=== PATIENT | female | born 1935 | race Caucasian/White ===

== ENCOUNTER → 2017-11-05 | Emergency (ER) | payer OTHER ==
[~2017-11-05] MED LIST: AMIODARONE HCL 150 MG/3 ML INJ IV ONE; AMIODARONE Inj 900 MG/18 mL (=50 MG/ML) VIAL IV ONE; FENTANYL CITR 100 MCG/2 ML ONE; KCL 20 MEQ/100 mL IVPB 20 MEQ/100 ML BAG IV ONE; MIDAZOLAM HCL 2 MG/2 ML INJ ONE; NA CHLORIDE 0.9% 1,000 ML ONE; NA CHLORIDE 0.9% 500 ML ONE; NS KCL 20MEQ 1,000 ML IV ONE; ONDANSETRON 4 MG/2 ML VIAL ONE; PANTOPRAZOLE 40 MG INJ ONE; PANTOPRAZOLE INJ 80 MG in NA CHLORIDE 0.9% 250 ML IV ONE
--- NOTE | 2017-11-05 10:45 | RAD REPORT ---
[facility]2017 10:24 am CLINICAL HISTORY: Cardioversion COMPARISON: 2013 FINDINGS: The lungs appear clear of acute infiltrate. The heart remains enlarged. Dilated central p ulmonary arteries probably indicate pulmonary arterial hypertension. Calcified lung granulomas and calcified hilar lymph nodes are again seen.
[2017-11-05 12:24] LABS: Troponin (Emerg Dept Use Only) < 0.02 ng/mL (0.0-0.045)
[2017-11-05 12:25] LABS: BUN Blood Urea Nitrogen 68 mg/dL (7-18); Bicarbonate 31 mmol/L (21-32); CKMB Creatine Kinase MB 4.4 ng/mL (0.3-3.6); Creatine Phosphokinase 174 U/L (26-192); Glucose Level 145 mg/dL (74-106); NT PRO-BNP 1379 pg/mL (<450); Sodium Level 133 mmol/L (136-145)
[2017-11-05 12:26] LABS: Absolute Lymphocytes (CBC) 0.8 K/uL (0.7-4.9); Absolute Monocytes 0.7 K/uL (0.1-1.3); Absolute Neutrophil 13.7 K/uL (1.8-8.0); Basophils % 0.2 % (0-1.3); Hematocrit 38.1 % (36.0-45.0); Lymphocytes % 5.3 % (15.3-44.8); MCH 31.9 pg (27.0-35.0); MCV 91.9 fL (80-100); MPV 7.9 fL (7.6-11.3); Monocytes % 4.4 % (3.3-12.3); RBC Red Blood Cell Count 4.14 M/uL (3.86-4.86)
[2017-11-05 12:37] LABS: Magnesium 1.8 mg/dL (1.8-2.4)
--- NOTE | 2017-11-06 12:14 | EKG ---
Test Date: 2017-11-05 Test Time: 06:11:14 Project Management: BETHANY MEASUREMENT RESULTS: Intervals: Rate: 158 DE: QRSD: 94 QT: 274 QTc: 444 [place]: P: DE: QRS: -24 T: -87 INTERPRETIVE STATEMENTS: Atrial fibrillation with rapid ventricular response with premature ventricular or aberrantly conducted complexes Incomplete right bundle branch block Inferior infarct, age undetermined Abnormal ECG No previous ECG available for comparison Electronically Signed On 11-06-17 12:08:13 CDT by Thompson Manuel
--- NOTE | 2017-11-06 12:14 | EKG ---
Test Date: 2017-11-05 Test Time: 07:14:11 Extended Day Teacher: BETHANY MEASUREMENT RESULTS: Intervals: Rate: 90 MT: 172 QRSD: 106 QT: 376 QTc: 459 [place]: P: 2 MT: 172 QRS: -24 T: -68 INTERPRETIVE STATEMENTS: Sinus rhythm with premature atrial complexes Incomplete right bundle branch block ST & T wave abnormality, consider inferior ischemia ST & T wave abnormality, consider anterolateral ischemia Abnormal ECG Compared to ECG 11/05/2017 06:11:14 Atrial premature complex(es) now present ST (T wave) deviation now present Possible ischemia now present Atrial fibrillation no longer present Ventricular premature complex(es) no longer present Myocardial infarct finding no longer present Electronically Signed On 11-06-17 12:08:11 CDT by Thompson Manuel
== END ==
LOC: ER 06:00
PROC: 5A2204Z Restoration of Cardiac Rhythm, Single (ICD-10-PCS; principal; 2017-11-05)
DX: K92.2 Gastrointestinal hemorrhage, unspecified (principal); R19.7 Diarrhea, unspecified; I48.91 Unspecified atrial fibrillation; I95.9 Hypotension, unspecified; E87.6 Hypokalemia; I10 Essential (primary) hypertension; I25.10 Atherosclerotic heart disease of native coronary artery without angina pectoris
CPT/HCPCS: 36415; 71045; 80048; 82550; 82553; 83735; 83880; 84484; 85025; 85610; 85730; 86850; 86900; 86901; 92960; 93005 ×2; C9113 ×2; J0282 ×2; J2250 ×2; J2405; J3010 ×2; J7030; J7060

== ENCOUNTER 2018-08-12 23:48 | Observation (INO) | payer OTHER ==
--- OUTSIDE RECORDS SUMMARY | 2018-08-12 23:52 | XMS REPORT | Clinical Summary ---
:[address] [facility] Address [address] [place] [address] Care Team Providers Name Role Phone Pcp, No Primary Care Provider Unavailable Thanh Mckee Unavailable Allergies No Known Allergies Medications Medication Sig Dispensed Refills Start Date End Date Status buPROPion (WELLBUTRIN Take 150 mg 0 Active SR) 150 MG 12 hr tablet by mouth 2 (two) times daily. hydroCHLOROthiazide Take 12.5 mg 0 Active (HYDRODIURIL) 12.5 MG by mouth tablet daily. acetaminophen (TYLENOL) Take 500 mg 0 Active 500 MG by mouth tabletIndications: back every 4 pain (four) hours as needed for Pain. amiodarone (PACERONE) Take 1 0 11/09/2017 11/10/19 Active 100 MG tablet tablet (100 19 mg total) by mouth 2 (two) times daily. amLODIPine (NORVASC) 5 Take 1 0 11/10/2017 11/11/19 Active MG tablet tablet (5 mg 19 total) by mouth daily. pantoprazole (PROTONIX) 40mg BID for 0 11/09/2017 Active 40 MG tablet 8 weeks and then 40mg PO daily.. amlodipine-benazepril Take 1 0 11/10/19 Discontinued (LOTREL) 10-40 mg per capsule by 18 capsule mouth daily. ibuprofen (ADVIL,MOTRIN) Take 100 mg 0 11/10/19 Discontinued 100 MG tablet by mouth 18 every 4 (four) hours as needed for Fever . potassium, sodium Take 2 8 packet 0 11/09/2017 11/11/19 phosphates (PHOS-NAK) packets by 18 280-160-250 mg PwPk mouth 4 packet (four) times daily before meals and nightly for 4 doses. aspirin 81 MG EC tablet Take 1 90 tablet 0 11/14/2017 02/13/20 tablet (81 18 mg total) by mouth daily for 90 days. Active Problems Problem Noted Date Abdominal aortic aneurysm (AAA) greater than 5.0 cm in diameter in female Pyloric channel ulcer, acute 11/07/2017 Compression fracture of spine 11/07/2017 GI bleed 11/05/2017 Atrial fibrillation 11/05/2017 HTN (hypertension) 11/05/2017 Fall 11/05/2017 Tail bone pain 11/05/2017 Loose stools 11/05/2017 Hypomagnesemia 11/05/2017 Hypophosphatemia 11/05/2017 Hypokalemia 11/05/2017 Leukocytosis 11/05/2017 Elevated troponin 11/05/2017 Acute blood loss anemia 11/05/2017 Elevated brain natriuretic peptide (BNP) level 11/05/2017 Hyponatremia 11/05/2017 Encounters Date Type Specialty Care Team Description 11/06/2017 Anesthesia Event Gastroenterology David Campbell MD 11/06/2017 Surgery Gastroenterology [place], UPPER ENDOSCOPY,BIOPSY Rhonda Ruffin MD 11/05/2017 Hospital Cardiology [facility], Atrial fibrillation, unspecified type (HCC) (Primary Dx); - Encounter MD Chandler Acute blood loss anemia; 11/09/2017 Vicky, Paroxysmal atrial fibrillation (HCC); MD Haydee Fall, initial encounter; Hypokalemia; Hypomagnesemia; Abdominal aortic aneurysm (AAA) greater than 5.0 cm in diameter in female (HCC); Compression fracture of vertebra, initial encounter (HCC); Gastrointestinal hemorrhage associated with duodenal ulcer; Pyloric channel ulcer, acute; Tail bone pain 11/05/2017 Orders Only General Internal Medicine after 08/11/2017 Social History Tobacco Use Types Packs/Day Years Used Date Former Smoker Quit: 05/05/2017 Smokeless Tobacco: Never Used Tobacco Cessation: Counseling Given: Yes Alcohol Use Drinks/Week oz/Week Comments Yes 1 Glasses of wine 0.6 occassional Sex Assigned at Date Recorded Not on file Job Start Date Occupation Industry Not on file Not on file Not on file Travel History Travel Start Travel End No recent travel history available. Last Filed Vital Signs Vital Sign Reading Time Taken Blood Pressure 124/76 11/09/2017 3:27 PM CDT Pulse 72 11/09/2017 3:27 PM CDT Temperature 36.9 C (98.5 F) 11/09/2017 3:27 PM CDT Respiratory Rate 18 11/09/2017 3:27 PM CDT Oxygen Saturation 93% 11/09/2017 3:27 PM CDT Inhaled Oxygen Concentration - - Weight 63.8 kg (140 lb 11.2 oz) 11/08/2017 5:20 AM CDT Height - - Body Mass Index - - Plan of Treatment Not on file Procedures Procedure Name Priority Date/Time Associated Diagnosis Comments REPORT OF PROCEDURE - 11/10/2017 1:10 ENDOSCOPY SCAN PM CDT RHYTHM STRIP - SCAN 11/10/2017 1:10 PM CDT ECHOCARDIOGRAM REPORT 11/09/2017 4:50 - SCAN PM CDT 2D ECHO W/ DOPPLER Routine 11/09/2017 9:16 Results for (CW/PW/COLOR) AM CDT this procedure are in the results section. COMPREHENSIVE STAT 11/09/2017 4:55 Results for METABOLIC PANEL AM CDT this procedure are in the results section. PHOSPHORUS STAT 11/08/2017 11:31 Results for AM CDT this procedure are in the results section. MAGNESIUM STAT 11/08/2017 11:31 Results for AM CDT this procedure are in the results section. CBC W/PLT COUNT & Routine 11/08/2017 5:21 Results for AUTO DIFFERENTIAL AM CDT this procedure are in the results section. PHOSPHORUS Routine 11/08/2017 5:21 Results for AM CDT this procedure are in the results section. MAGNESIUM Routine 11/08/2017 5:21 Results for AM CDT this procedure are in the results section. RPR Routine 11/08/2017 5:21 Results for AM CDT this procedure are in the results section. COMPREHENSIVE Routine 11/08/2017 5:21 Results for METABOLIC PANEL AM CDT this procedure are in the results section. CBC W/PLT COUNT & Routine 11/08/2017 5:21 Results for AUTO DIFFERENTIAL AM CDT this procedure are in the results section. XR CHEST 1 VIEW ZACHARY 11/07/2017 5:40 Results for PORTABLE/BEDSIDE PM CDT this procedure are in the results section. CBC W/PLT COUNT & Routine 11/07/2017 6:47 Results for AUTO DIFFERENTIAL AM CDT this procedure are in the results section. MAGNESIUM Routine 11/07/2017 6:47 Results for AM CDT this procedure are in the results section. COMPREHENSIVE Routine 11/07/2017 6:47 Results for METABOLIC PANEL AM CDT this procedure are in the results section. CBC W/PLT COUNT & Routine 11/07/2017 6:47 Results for AUTO DIFFERENTIAL AM CDT this procedure are in the results section. CT SPINE LUMBAR STAT 11/07/2017 12:22 Results for WITHOUT IV CONTRAST AM CDT this procedure are in the results section. CT SPINE THORACIC STAT 11/07/2017 12:22 Results for WITHOUT IV CONTRAST AM CDT this procedure are in the results section. XR SPINE LUMBER 2 OR STAT 11/06/2017 9:15 Results for 3 VIEWS PM CDT this procedure are in the results section. XR SPINE THORACIC 2 STAT 11/06/2017 9:15 Results for VIEWS PM CDT this procedure are in the results section. REPORT OF PROCEDURE - 11/06/2017 3:48 ENDOSCOPY URL PM CDT TISSUE EXAM AP Routine 11/06/2017 12:51 Results for PM CDT this procedure are in the results section. UPPER 11/06/2017 11:00 Gastrointestinal ENDOSCOPY,BIOPSY AM CDT hemorrhage, unspecified gastrointestinal hemorrhage type Special Needs EGD W/ ANES CBC W/PLT COUNT & AUTO Routine 11/06/2017 5:13 AM CDT Results for this DIFFERENTIAL procedure are in the results section. PHOSPHORUS Routine 11/06/2017 5:13 AM CDT MAGNESIUM Routine 11/06/2017 5:13 AM CDT COMPREHENSIVE METABOLIC Routine 11/06/2017 5:13 AM CDT Results for this PANEL procedure are in the results section. CBC W/PLT COUNT & AUTO Routine 11/06/2017 5:13 AM CDT Results for this DIFFERENTIAL procedure are in the results section. HEMOGLOBIN AND HEMATOCRIT Routine 11/06/2017 1:03 AM CDT TROPONIN I STAT 11/06/2017 1:03 AM CDT TROPONIN I STAT 11/05/2017 5:14 PM CDT CBC W/PLT COUNT & AUTO STAT 11/05/2017 12:22 PM CDT Results for this DIFFERENTIAL procedure are in the results section. APTT Routine 11/05/2017 12:22 PM CDT TROPONIN I STAT 11/05/2017 12:22 PM CDT TSH/FREE T4 IF INDICATED ZACHARY 11/05/2017 12:22 PM CDT VITAMIN B12 AND FOLATE STAT 11/05/2017 12:22 PM CDT B-TYPE NATRIURETIC FACTOR STAT 11/05/2017 12:22 PM CDT Results for this (BNP) procedure are in the results section. FERRITIN STAT 11/05/2017 12:22 PM CDT IRON, TIBC, % SAT. (WITHOUT STAT 11/05/2017 12:22 PM CDT Results for this FERRITIN) procedure are in the results section. RETICULOCYTE COUNT STAT 11/05/2017 12:22 PM CDT PROTHROMBIN TIME/INR STAT 11/05/2017 12:22 PM CDT PHOSPHORUS STAT 11/05/2017 12:22 PM CDT MAGNESIUM STAT 11/05/2017 12:22 PM CDT COMPREHENSIVE METABOLIC STAT 11/05/2017 12:22 PM CDT Results for this PANEL procedure are in the results section. CBC W/PLT COUNT & AUTO STAT 11/05/2017 12:22 PM CDT Results for this DIFFERENTIAL procedure are in the results section. ECG 12-LEAD Routine 11/05/2017 12:03 PM CDT Procedure Note - Interface, External Ris In - 11/05/2017 3:27 PM CDT Ventricular Rate 80 BPM Atrial Rate 80 BPM P-R Interval 160 ms QRS Duration 104 ms Q-T Interval 406 ms QTC Calculation(Bazett) 468 ms P Corbett 5 degrees R Corbett -20 degrees T Corbett -62 degrees Sinus rhythm with Premature atrial complexes Incomplete right bundle branch block Cannot rule out Anterior infarct , age undetermined ST & T wave abnormality, consider lateral ischemia Abnormal ECG No previous ECGs available ECG 12-LEAD STAT 11/05/2017 12:03 PM CDT after 08/11/2017 Results EKG-SCANNED (11/10/2017 1:10 PM CDT) Narrative Performed At RHYTHM STRIP - SCAN (11/10/2017 1:10 PM CDT) Narrative Performed At ECHOCARDIOGRAM REPORT - SCAN (11/09/2017 4:50 PM CDT) Narrative Performed At 2D Echo W/Doppler(CW/PW/Color) (11/09/2017 9:16 AM CDT) Ejection Fraction [facility] Specimen Narrative Performed At Transthoracic Echocardiography Report (TTE) [facility] Demographics Patient Name KATHY AMAYA Date of Study11/09/2017 [id number] nder Female Visit Number [id number] Unknown Accession Number [id number] Room [id number] Date of Birth1935Referring PhysicianChandler Gaytan Age82 year(s)SonographerElan Gould [facility] Interpreting Physician Roxanne Chavez MD Procedure Type of Study TTE procedure:2DECHO W DOPPLER(CW/PW/COLOR) (Routine) Indications:Sustained or non sustained Afib, SVT or VT. Clinical History HTN, Former smoker, Fall, Elevated troponin, Anemia HGB 8.7 HCT 25.7 % Height: 66 inches Weight: 63.5 kg (140 lbs) BSA: 1.72 m^2 BMI: 22.6 kg/m^2 HR: 81 bpm BP: 143/77 mmHg Summary Global LV systolic function mildly reduced. Mild concentric LV hypertrophy. LA size is normal (16-34 ml/m2) . RV chamber size is normal . Global RV systolic function is mildly reduced . The RV wall thickness is mildly increased . A trace of tricuspid regurgitation. Estimated peak systolic PA pressure is 55-60 mmHg . The estimated RA pressure by IVC dynamics 16-20mmHg . Mild aortic regurgitation. Previous Study No prior exam available for comparison. Signature Findings Technical Quality: Adequate visualization Left Ventricle Global LV systolic function mildly reduced. LV EF by Barragan's method of disk assessment is mi ldly reduced (45-49%) . De gree of diastolic dysfunction (LAP assessment) is in conclusive due to arrhythmia . Mi ld concentric LV hypertrophy. Th e left ventricle is chamber size (by vol index) is normal (female - LVED vol - 29-61ml/m2). Left AtriumLA size is normal (16-34 ml/m2) . Right VentricleRV chamber size is normal . Gl obal RV systolic function is mildly reduced . Th e RV wall thickness is mildly increased . Right Atrium RA size is normal. Aortic Valve Moderate AoV cusp thickening. Mi ld aortic regurgitation. Mitral Valve Mild MV leaflet thickening. Mi ld mitral annular calcification. Mi ld mitral regurgitation. Tricuspid ValveA trace of tricuspid regurgitation. TV structure is normal. Es timated peak systolic PA pressure is 55-60 mmHg . Pulmonic Valve Normal PV structure appears normal by available vi ews. A trace of pulmonary regurgitation. AortaAortic root size (SInus of Valsalva diameter) is no rmal . PericardiumNo pericardial effusion is visualized. IVC/SVC/PA/PV/PleuralThe estimated RA pressure by IVC dynamics 16-20mmHg . Chambers/Structures Left Atrium LA Dimension: 3.46 cmLA Area: 17.82 cm^2 LA Volume: 69.67 ml LA Vol. Index: 41 ml/m^2 Left Ventricle LVIDd: 4.32 cm LVIDs: 3.28 cm LV Septum Diastolic: 1.44 cm LV PW Diastolic: 1.29 cmLV FS: 24.1 % LVEDV Barragan's:75.99 ml LVESV Barragan's:38.58 mlLVEDVI: 44 ml/m^2 LVEF Barragan's: 49.2 %LVESV I: 22 ml/m^2 LVOT Diameter: 1.95 cm Doppler/Quantitative Measurements Mitral Valve MV Peak E-Wave: 0.97 m/s MV Peak A-Wave: 1.21 m/s E/A Ratio: 0.8 Peak Gradient: 3.77 mmHg Deceleration Time: 168.5 msec MV Oswald. Peak: Aortic Valve Peak Velocity: 2.12 m/sMean Velocity: 1.04 m/s Peak Gradient: 17.92 mmHgMean Gradient: 5.71 mmHg AV Area (continuity): 2.25 cm^2 AV VTI: 41.59 cm AV DVI: 0.75 LVOT Peak Velocity: 1.42 m/s Peak Gradient: 8.12 mmHg Mean Velocity: 0.84 m/s Mean Gradient: 3.55 mmHg LVOT Diameter: 1.95 cmLVOT VTI: 31.33 cm LVOT Area: 2.99 cm^2LVOT SV:93.52 ml LVOT CO: 7.58 l/min LVOT CI: 4.41 l/min/m^2 Tricuspid Valve TR Velocity: 3.13 m/s TR Gradient: 39.29 mmHg Procedure Note Interface, External Ris In - 11/09/2017 4:09 PM CDT Transthoracic Echocardiography Report (TTE) Demographics Patient Name KATHY AMAYA Date of Study 11/09/2017 Gender Female Visit Number [id number] Race Unknown Accession Number [id number] Room Number 1139 Date of 1935 Referring Physician Chandler Gaytan Age 82 year(s) Certified Ophthalmic Technician Ann Marie Gould RDCS Interpreting Physician Roxanne Chavez MD Procedure Type of Study TTE procedure:2DECHO W DOPPLER(CW/PW/COLOR) (Routine) Indications:Sustained or non sustained Afib, SVT or VT. Clinical History HTN, Former smoker, Fall, Elevated troponin, Anemia HGB 8.7 HCT 25.7 % Height: 66 inches Weight: 63.5 kg (140 lbs) BSA: 1.72 m^2 BMI: 22.6 kg/m^2 HR: 81 bpm BP: 143/77 mmHg Summary Global LV systolic function mildly reduced. Mild concentric LV hypertrophy. LA size is normal (16-34 ml/m2) . RV chamber size is normal . Global RV systolic function is mildly reduced . The RV wall thickness is mildly increased . A trace of tricuspid regurgitation. Estimated peak systolic PA pressure is 55-60 mmHg . The estimated RA pressure by IVC dynamics 16-20mmHg . Mild aortic regurgitation. Previous Study No prior exam available for comparison. Signature Findings Technical Quality: Adequate visualization Left Ventricle Global LV systolic function mildly reduced. LVEF by Barragan's method of disk assessment is mildly reduced (45-49%) . Degree of diastolic dysfunction (LAP assessment) is inconclusive due to arrhythmia . Mild concentric LV hypertrophy. The left ventricle is chamber size (by vol index) is normal (female - LVED vol - 29-61ml/m2). Left Atrium LA size is normal (16-34 ml/m2) . Right Ventricle RV chamber size is normal . Global RV systolic function is mildly reduced . The RV wall thickness is mildly increased . Right Atrium RA size is normal. Aortic Valve Moderate AoV cusp thickening. Mild aortic regurgitation. Mitral Valve Mild MV leaflet thickening. Mild mitral annular calcification. Mild mitral regurgitation. Tricuspid Valve A trace of tricuspid regurgitation. TV structure is normal. Estimated peak systolic PA pressure is 55-60 mmHg . Pulmonic Valve Normal PV structure appears normal by available views. A trace of pulmonary regurgitation. Aorta Aortic root size (SInus of Valsalva diameter) is normal . Pericardium No pericardial effusion is visualized. IVC/SVC/PA/PV/Pleural The estimated RA pressure by IVC dynamics 16-20mmHg . Chambers/Structures Left Atrium LA Dimension: 3.46 cm LA Area: 17.82 cm^2 LA Volume: 69.67 ml LA Vol. Index: 41 ml/m^2 Left Ventricle LVIDd: 4.32 cm LVIDs: 3.28 cm LV Septum Diastolic: 1.44 cm LV PW Diastolic: 1.29 cm LV FS: 24.1 % LVEDV Barragan's:75.99 ml LVESV Barragan's:38.58 ml LVEDVI: 44 ml/m^2 LVEF Barragan's: 49.2 % LVESVI: 22 ml/m^2 LVOT Diameter: 1.95 cm Doppler/Quantitative Measurements Mitral Valve MV Peak E-Wave: 0.97 m/s MV Peak A-Wave: 1.21 m/s E/A Ratio: 0.8 Peak Gradient: 3.77 mmHg Deceleration Time: 168.5 msec MV Oswald. Peak: Aortic Valve Peak Velocity: 2.12 m/s Mean Velocity: 1.04 m/s Peak Gradient: 17.92 mmHg Mean Gradient: 5.71 mmHg AV Area (continuity): 2.25 cm^2 AV VTI: 41.59 cm AV DVI: 0.75 LVOT Peak Velocity: 1.42 m/s Peak Gradient: 8.12 mmHg Mean Velocity: 0.84 m/s Mean Gradient: 3.55 mmHg LVOT Diameter: 1.95 cm LVOT VTI: 31.33 cm LVOT Area: 2.99 cm^2 LVOT SV:93.52 ml LVOT CO: 7.58 l/min LVOT CI: 4.41 l/min/m^2 Tricuspid Valve TR Velocity: 3.13 m/s TR Gradient: 39.29 mmHg Performing Organization Address City/State/Zipcode Phone Number [facility] [facility] Comprehensive metabolic panel (11/09/2017 4:55 AM CDT)Only the most recent of5 resultswithin the time period is included. Protein, Total 5.4 (L) 6.0 - 8.3 gm/dL [facility] Albumin 3.2 (L) 3.5 - 5.0 g/dL [facility] Alkaline Phosphatase 98 40 - 150 U/L [facility] Total Bilirubin 0.7 0.2 - 1.2 mg/dL [facility] Sodium 133 (L) 136 - 145 meq/L [facility] Potassium 3.5 3.5 - 5.1 meq/L [facility] Chloride 90 (L) 98 - 107 meq/L [facility] CO2 34 (H) 22 - 29 meq/L [facility] BUN 6 (L) 7 - 21 mg/dL [facility] Creatinine 0.59 0.57 - 1.25 mg/dL [facility] Glucose 98 70 - 105 mg/dL [facility] Calcium 9.3 8.4 - 10.2 mg/dL [facility] AST 30 5 - 34 U/L [facility] ALT 25 6 - 55 U/L [facility] EGFR 97Comment: ESTIMATED GFR mL/min/1.73 sq m [facility] IS NOT ACCURATE [facility] CREATININE CLEARANCE IN PREDICTING GLOMERULAR FILTRATION RATE. ESTIMATED GFR IS NOT APPLICABLE FOR DIALYSIS PATIENTS. Specimen Blood Narrative Performed At Peripheral stick [facility] Performing Organization Address City/[facility] Phone Number [address] [address] [facility] Phosphorus (11/08/2017 11:31 AM CDT)Only the most recent of4 resultswithin the time period is included. Phosphorus 2.2 (L) 2.3 - 4.7 mg/dL [facility] Specimen Blood Performing Organization Address [facility] Phone Number [address] [address] [facility] Magnesium (11/08/2017 11:31 AM CDT)Only the most recent of5 resultswithin the time period is included. Magnesium 2.5 1.6 - 2.6 mg/dL [facility] Specimen Blood Performing Organization Address City/[facility] Phone Number [address] [phone] C[place] CBC with platelet count + automated diff (11/08/2017 5:21 AM CDT)Only the most recent of4 resultswithin the time period is included. WBC 11.0 (H) 3.5 - 10.5 K/L [facility] RBC 2.73 (L) 3.93 - 5.22 M/L [facility] Hemoglobin 8.7 (L) 11.2 - 15.7 GM/DL [facility] Hematocrit 25.7 (L) 34.1 - 44.9 % [facility] MCV 94.1 79.4 - 94.8 fL [facility] MCH 31.9 25.6 - 32.2 pg [facility] MCHC 33.9 32.2 - 35.5 GM/DL [facility] RDW 14.6 (H) 11.7 - 14.4 % [facility] Platelets 264 150 - 450 K/CU MM [facility] MPV 9.6 9.4 - 12.3 fL [facility] nRBC 0 0 - 0 /100 WBC [facility] % Neutros 83 % [facility] % Lymphs 7 % [facility] % Monos 9 % [facility] % Eos 1 % [facility] % Baso 0 % [facility] # Neutros 9.12 (H) 1.56 - 6.13 K/L [facility] # Lymphs 0.71 (L) 1.18 - 3.74 K/L [facility] # Monos 1.01 (H) 0.24 - 0.36 K/L [facility] # Eos 0.08 0.04 - 0.36 K/L [facility] # Baso 0.02 0.01 - 0.08 K/L [facility] Immature Granulocytes-Relative 1 0 - 1 % [facility] Specimen Blood Performing Organization Address City/[facility]/Zipcode Phone Number [address] [phone] [place] RPR (11/08/2017 5:21 AM CDT) RPR Nonreactive Nonreactive [facility] Specimen Blood Performing Organization Address [facility]/Zipcode Phone Number [address] [address] [place] XR chest 1 view portable / bedside (11/07/2017 5:40 PM CDT) Specimen Narrative Performed At FINAL REPORT [facility] Portable chest. Clinical history: Hypoxemia. COMPARISON STUDY: None available. FINDINGS: The cardiac size is enlarged. The aorta is tortuous. Atelectatic changes are noted in the lung bases. There is no focal opacity, pleural effusion or pneumothorax. Degenerative changes are seen. IMPRESSION: Cardiomegaly with mild interstitial markings. Signed: Benjamín Christianson MD Report Verified Date/Time:11/07/2017 18:26:32 Reading Location: [address] Body Reading Room Procedure Note Interface, External Ris In - 11/07/2017 6:28 PM CDT FINAL REPORT Portable chest. Clinical history: Hypoxemia. COMPARISON STUDY: None available. FINDINGS: The cardiac size is enlarged. The aorta is tortuous. Atelectatic changes are noted in the lung bases. There is no focal opacity, pleural effusion or pneumothorax. Degenerative changes are seen. IMPRESSION: Cardiomegaly with mild interstitial markings. Signed: Benjamín Christianson MD Report Verified Date/Time: 11/07/2017 18:26:32 Reading Location: [facility] [id number] CT Body Reading Room Performing Organization Address [facility]/Zipcode Phone Number GE RIS CT spine lumbar without IV contrast (11/07/2017 12:22 AM CDT) Specimen Narrative Performed At FINAL REPORT [facility] CLINICAL HISTORY: Trauma and pain, abnormal x-ray evaluation of the thoracic and lumbar spine COMPARISON: None. Correlation is made with thoracic lumbar x-ray series from the same date. FINDINGS: Multiple axial images of the thoracic and lumbar spine were performed without IV contrast. Coronal and sagittal reformats were created. This exam was performed according to our departmental dose-optimization program, which includes automated exposure control, adjustment of the mA and/or kV according to patient size and/or use of the iterative reconstruction technique. The examinations are limited by osteopenia, which can obscure a subtle bony injury. THORACIC SPINE: There are 12 rib bearing vertebral levels. There is an age indeterminate compression deformity with loss of approximately 50% vertebral body height at T12. Otherwise no thoracic vertebral body fracture is present. There is no thoracic vertebral malalignment. There is an exaggerated thoracic kyphosis. Diffuse, mild to moderate degenerative changes are present, including loss of disc space height, vertebral body endplate osteophyte formation and facet hypertrophy. The conus terminates at T12-L1. The heart is partially visualized but appears enlarged. There are atherosclerotic calcifications of the coronary arteries, aorta and great vessels arising from the arch. The aorta is ectatic. Calcified granulomata are present in the right lower lobe. Calcified lymph nodes are present in the mediastinum and right hilum. There is a partially visualized right thyroid nodule measuring up to 1.6 cm, where visualized. Multiple hepatic and splenic parenchymal granulomata are present. LUMBAR SPINE: There are 5 nonrib-bearing lumbar vertebral levels. There are vertebral body compression deformities resulting in 75% loss of height at L1, 50% loss of height at L2 and 25% loss of height at L3. There is retropulsion of the superior endplates of L1 narrowing the spinal canal at that level where the canal measures less than 9 mm in AP dimension. There are bilateral L5 pars deformities with 14 mm of anterolisthesis of L5 on S1 and associated severe degenerative disc disease and bilateral neural foraminal narrowing. Loss of disc space height is seen elsewhere at T12-L1, L1-L2 and L4-L5. There is facet hypertrophy at L4-L5 and L5-S1 with associated bony neural foraminal narrowing. There are minimally displaced bilateral sacral alar fractures. There is a partially visualized infrarenal, suprailiac abdominal aortic aneurysm that measures 6.6 cm in transverse diameter. There appears to be a high density peripheral rim, possibly mural thrombus. An 11 mm cyst is present in the posterior left kidney. IMPRESSION: Age indeterminate compression deformity of the vertebral body of T12, L1, L2 and L3. Evaluation with MRI or bone scan can be performed if old examinations are not available elsewhere for comparison. Age indeterminate bilateral sacral alar fractures. These can also be assessed with MRI or bone scan, if indicated. Partially visualized infrarenal, suprailiac abdominal aortic aneurysm measuring up to 6.6 cm where visualized. A crescentic rim of high density at the lateral margin may reflect mural thrombus. Vascular surgery consult is recommended. This finding was communicated to the overnight resident covering [address] [place] at 0115 hours on the date of the examination. Partially visualized cardiomegaly. Evidence of granulomatous exposure. 1.6 cm partially visualized right thyroid nodule. Please see below for published recommendations related to follow-up. Recommendations for f/u of Incidental Thyroid Nodules (ITN) found on CT, MRI, NM and Extrathyroidal US based on the ACR white paper and Nielsen 3-tiered system for managing ITNs: 1.Further evaluation by thyroid US recommended for: oSolitary ITN with high risk imaging features (locally invasive nodule or suspicious lymph nodes) oSolitary ITN of any size in pediatric patients <=18 years of age oSolitary ITN >=1 cm in axial plane in patients > 18 and < 35 years of age oSolitary ITN >=1.5 cm in axial plane in patients >=35 years of age oHeterogeneous enlarged thyroid gland oITN avid on FDG-PET or other nuclear medicine (MIBI and octreotide) scans. FNA biopsy is also recommended for PET avid nodules. 2.For multiple thyroid nodules, the above recommendations for solitary ITN are to be applied to the largest nodule. 3.No US or f/u recommended for ITNs without high risk features in patients with limited life expectancy or significant co-morbidities, unless clinically warranted. 4.These recommendations do not apply to patients with increased risk for thyroid cancer or to patients with symptomatic thyroid disease. Signed: Mingo Melchor MD Report Verified Date/Time:11/07/2017 01:15:07 Reading Location: [address] Room Procedure Note Interface, External Ris In - 11/07/2017 1:17 AM CDT FINAL REPORT CLINICAL HISTORY: Trauma and pain, abnormal x-ray evaluation of the thoracic and lumbar spine COMPARISON: None. Correlation is made with thoracic lumbar x-ray series from the same date. FINDINGS: Multiple axial images of the thoracic and lumbar spine were performed without IV contrast. Coronal and sagittal reformats were created. This exam was performed according to our departmental dose-optimization program, which includes automated exposure control, adjustment of the mA and/or kV according to patient size and/or use of the iterative reconstruction technique. The examinations are limited by osteopenia, which can obscure a subtle bony injury. THORACIC SPINE: There are 12 rib bearing vertebral levels. There is an age indeterminate compression deformity with loss of approximately 50% vertebral body height at T12. Otherwise no thoracic vertebral body fracture is present. There is no thoracic vertebral malalignment. There is an exaggerated thoracic kyphosis. Diffuse, mild to moderate degenerative changes are present, including loss of disc space height, vertebral body endplate osteophyte formation and facet hypertrophy. The conus terminates at T12-L1. The heart is partially visualized but appears enlarged. There are atherosclerotic calcifications of the coronary arteries, aorta and great vessels arising from the arch. The aorta is ectatic. Calcified granulomata are present in the right lower lobe. Calcified lymph nodes are present in the mediastinum and right hilum. There is a partially visualized right thyroid nodule measuring up to 1.6 cm, where visualized. Multiple hepatic and splenic parenchymal granulomata are present. LUMBAR SPINE: There are 5 nonrib-bearing lumbar vertebral levels. There are vertebral body compression deformities resulting in 75% loss of height at L1, 50% loss of height at L2 and 25% loss of height at L3. There is retropulsion of the superior endplates of L1 narrowing the spinal canal at that level where the canal measures less than 9 mm in AP dimension. There are bilateral L5 pars deformities with 14 mm of anterolisthesis of L5 on S1 and associated severe degenerative disc disease and bilateral neural foraminal narrowing. Loss of disc space height is seen elsewhere at T12-L1, L1-L2 and L4-L5. There is facet hypertrophy at L4-L5 and L5-S1 with associated bony neural foraminal narrowing. There are minimally displaced bilateral sacral alar fractures. There is a partially visualized infrarenal, suprailiac abdominal aortic aneurysm that measures 6.6 cm in transverse diameter. There appears to be a high density peripheral rim, possibly mural thrombus. An 11 mm cyst is present in the posterior left kidney. IMPRESSION: Age indeterminate compression deformity of the vertebral body of T12, L1, L2 and L3. Evaluation with MRI or bone scan can be performed if old examinations are not available elsewhere for comparison. Age indeterminate bilateral sacral alar fractures. These can also be assessed with MRI or bone scan, if indicated. Partially visualized infrarenal, suprailiac abdominal aortic aneurysm measuring up to 6.6 cm where visualized. A crescentic rim of high density at the lateral margin may reflect mural thrombus. Vascular surgery consult is recommended. This finding was communicated to the overnight resident covering [address] [place] at 0115 hours on the date of the examination. Partially visualized cardiomegaly. Evidence of granulomatous exposure. 1.6 cm partially visualized right thyroid nodule. Please see below for published recommendations related to follow-up. Recommendations for f/u of Incidental Thyroid Nodules (ITN) found on CT, MRI, NM and Extrathyroidal US based on the ACR white paper and Nielsen 3-tiered system for managing ITNs: 1. Further evaluation by thyroid US recommended for: o Solitary ITN with high risk imaging features (locally invasive nodule or suspicious lymph nodes) o Solitary ITN of any size in pediatric patients <=18 years of age o Solitary ITN >=1 cm in axial plane in patients > 18 and < 35 years of age o Solitary ITN >=1.5 cm in axial plane in patients >=35 years of age o Heterogeneous enlarged thyroid gland o ITN avid on FDG-PET or other nuclear medicine (MIBI and octreotide) scans. FNA biopsy is also recommended for PET avid nodules. 2. For multiple thyroid nodules, the above recommendations for solitary ITN are to be applied to the largest nodule. 3. No US or f/u recommended for ITNs without high risk features in patients with limited life expectancy or significant co-morbidities, unless clinically warranted. 4. These recommendations do not apply to patients with increased risk for thyroid cancer or to patients with symptomatic thyroid disease. Signed: Mingo Melchor MD Report Verified Date/Time: 11/07/2017 01:15:07 Reading Location: [address] Reading Room Performing Organization Address City/State/Zipcode Phone Number [facility] CT spine thoracic without IV contrast (11/07/2017 12:22 AM CDT) Specimen Narrative Performed At FINAL REPORT [facility] CLINICAL HISTORY: Trauma and pain, abnormal x-ray evaluation of the thoracic and lumbar spine COMPARISON: None. Correlation is made with thoracic lumbar x-ray series from the same date. FINDINGS: Multiple axial images of the thoracic and lumbar spine were performed without IV contrast. Coronal and sagittal reformats were created. This exam was performed according to our departmental dose-optimization program, which includes automated exposure control, adjustment of the mA and/or kV according to patient size and/or use of the iterative reconstruction technique. The examinations are limited by osteopenia, which can obscure a subtle bony injury. THORACIC SPINE: There are 12 rib bearing vertebral levels. There is an age indeterminate compression deformity with loss of approximately 50% vertebral body height at T12. Otherwise no thoracic vertebral body fracture is present. There is no thoracic vertebral malalignment. There is an exaggerated thoracic kyphosis. Diffuse, mild to moderate degenerative changes are present, including loss of disc space height, vertebral body endplate osteophyte formation and facet hypertrophy. The conus terminates at T12-L1. The heart is partially visualized but appears enlarged. There are atherosclerotic calcifications of the coronary arteries, aorta and great vessels arising from the arch. The aorta is ectatic. Calcified granulomata are present in the right lower lobe. Calcified lymph nodes are present in the mediastinum and right hilum. There is a partially visualized right thyroid nodule measuring up to 1.6 cm, where visualized. Multiple hepatic and splenic parenchymal granulomata are present. LUMBAR SPINE: There are 5 nonrib-bearing lumbar vertebral levels. There are vertebral body compression deformities resulting in 75% loss of height at L1, 50% loss of height at L2 and 25% loss of height at L3. There is retropulsion of the superior endplates of L1 narrowing the spinal canal at that level where the canal measures less than 9 mm in AP dimension. There are bilateral L5 pars deformities with 14 mm of anterolisthesis of L5 on S1 and associated severe degenerative disc disease and bilateral neural foraminal narrowing. Loss of disc space height is seen elsewhere at T12-L1, L1-L2 and L4-L5. There is facet hypertrophy at L4-L5 and L5-S1 with associated bony neural foraminal narrowing. There are minimally displaced bilateral sacral alar fractures. There is a partially visualized infrarenal, suprailiac abdominal aortic aneurysm that measures 6.6 cm in transverse diameter. There appears to be a high density peripheral rim, possibly mural thrombus. An 11 mm cyst is present in the posterior left kidney. IMPRESSION: Age indeterminate compression deformity of the vertebral body of T12, L1, L2 and L3. Evaluation with MRI or bone scan can be performed if old examinations are not available elsewhere for comparison. Age indeterminate bilateral sacral alar fractures. These can also be assessed with MRI or bone scan, if indicated. Partially visualized infrarenal, suprailiac abdominal aortic aneurysm measuring up to 6.6 cm where visualized. A crescentic rim of high density at the lateral margin may reflect mural thrombus. Vascular surgery consult is recommended. This finding was communicated to the overnight resident covering [address] [place] at 0115 hours on the date of the examination. Partially visualized cardiomegaly. Evidence of granulomatous exposure. 1.6 cm partially visualized right thyroid nodule. Please see below for published recommendations related to follow-up. Recommendations for f/u of Incidental Thyroid Nodules (ITN) found on CT, MRI, NM and Extrathyroidal US based on the ACR white paper and Nielsen 3-tiered system for managing ITNs: 1.Further evaluation by thyroid US recommended for: oSolitary ITN with high risk imaging features (locally invasive nodule or suspicious lymph nodes) oSolitary ITN of any size in pediatric patients <=18 years of age oSolitary ITN >=1 cm in axial plane in patients > 18 and < 35 years of age oSolitary ITN >=1.5 cm in axial plane in patients >=35 years of age oHeterogeneous enlarged thyroid gland oITN avid on FDG-PET or other nuclear medicine (MIBI and octreotide) scans. FNA biopsy is also recommended for PET avid nodules. 2.For multiple thyroid nodules, the above recommendations for solitary ITN are to be applied to the largest nodule. 3.No US or f/u recommended for ITNs without high risk features in patients with limited life expectancy or significant co-morbidities, unless clinically warranted. 4.These recommendations do not apply to patients with increased risk for thyroid cancer or to patients with symptomatic thyroid disease. Signed: Mingo Melchor MD Report Verified Date/Time:11/07/2017 01:15:07 Reading Location: [address] Reading Room Procedure Note Interface, External Ris In - 11/07/2017 1:17 AM CDT FINAL REPORT CLINICAL HISTORY: Trauma and pain, abnormal x-ray evaluation of the thoracic and lumbar spine COMPARISON: None. Correlation is made with thoracic lumbar x-ray series from the same date. FINDINGS: Multiple axial images of the thoracic and lumbar spine were performed without IV contrast. Coronal and sagittal reformats were created. This exam was performed according to our departmental dose-optimization program, which includes automated exposure control, adjustment of the mA and/or kV according to patient size and/or use of the iterative reconstruction technique. The examinations are limited by osteopenia, which can obscure a subtle bony injury. THORACIC SPINE: There are 12 rib bearing vertebral levels. There is an age indeterminate compression deformity with loss of approximately 50% vertebral body height at T12. Otherwise no thoracic vertebral body fracture is present. There is no thoracic vertebral malalignment. There is an exaggerated thoracic kyphosis. Diffuse, mild to moderate degenerative changes are present, including loss of disc space height, vertebral body endplate osteophyte formation and facet hypertrophy. The conus terminates at T12-L1. The heart is partially visualized but appears enlarged. There are atherosclerotic calcifications of the coronary arteries, aorta and great vessels arising from the arch. The aorta is ectatic. Calcified granulomata are present in the right lower lobe. Calcified lymph nodes are present in the mediastinum and right hilum. There is a partially visualized right thyroid nodule measuring up to 1.6 cm, where visualized. Multiple hepatic and splenic parenchymal granulomata are present. LUMBAR SPINE: There are 5 nonrib-bearing lumbar vertebral levels. There are vertebral body compression deformities resulting in 75% loss of height at L1, 50% loss of height at L2 and 25% loss of height at L3. There is retropulsion of the superior endplates of L1 narrowing the spinal canal at that level where the canal measures less than 9 mm in AP dimension. There are bilateral L5 pars deformities with 14 mm of anterolisthesis of L5 on S1 and associated severe degenerative disc disease and bilateral neural foraminal narrowing. Loss of disc space height is seen elsewhere at T12-L1, L1-L2 and L4-L5. There is facet hypertrophy at L4-L5 and L5-S1 with associated bony neural foraminal narrowing. There are minimally displaced bilateral sacral alar fractures. There is a partially visualized infrarenal, suprailiac abdominal aortic aneurysm that measures 6.6 cm in transverse diameter. There appears to be a high density peripheral rim, possibly mural thrombus. An 11 mm cyst is present in the posterior left kidney. IMPRESSION: Age indeterminate compression deformity of the vertebral body of T12, L1, L2 and L3. Evaluation with MRI or bone scan can be performed if old examinations are not available elsewhere for comparison. Age indeterminate bilateral sacral alar fractures. These can also be assessed with MRI or bone scan, if indicated. Partially visualized infrarenal, suprailiac abdominal aortic aneurysm measuring up to 6.6 cm where visualized. A crescentic rim of high density at the lateral margin may reflect mural thrombus. Vascular surgery consult is recommended. This finding was communicated to the overnight resident covering [address] [place] at 0115 hours on the date of the examination. Partially visualized cardiomegaly. Evidence of granulomatous exposure. 1.6 cm partially visualized right thyroid nodule. Please see below for published recommendations related to follow-up. Recommendations for f/u of Incidental Thyroid Nodules (ITN) found on CT, MRI, NM and Extrathyroidal US based on the ACR white paper and Nielsen 3-tiered system for managing ITNs: 1. Further evaluation by thyroid US recommended for: o Solitary ITN with high risk imaging features (locally invasive nodule or suspicious lymph nodes) o Solitary ITN of any size in pediatric patients <=18 years of age o Solitary ITN >=1 cm in axial plane in patients > 18 and < 35 years of age o Solitary ITN >=1.5 cm in axial plane in patients >=35 years of age o Heterogeneous enlarged thyroid gland o ITN avid on FDG-PET or other nuclear medicine (MIBI and octreotide) scans. FNA biopsy is also recommended for PET avid nodules. 2. For multiple thyroid nodules, the above recommendations for solitary ITN are to be applied to the largest nodule. 3. No US or f/u recommended for ITNs without high risk features in patients with limited life expectancy or significant co-morbidities, unless clinically warranted. 4. These recommendations do not apply to patients with increased risk for thyroid cancer or to patients with symptomatic thyroid disease. Signed: Mingo Melchor MD Report Verified Date/Time: 11/07/2017 01:15:07 Reading Location: [address] Reading Room Performing Organization Address City/State/Zipcode Phone Number [facility] XR spine lumbar 2 or 3 views (11/06/2017 9:15 PM CDT) Specimen Narrative Performed At FINAL REPORT [facility] RAD, SPINE, THORACIC, 2 VIEWS, RAD, SPINE, LUMBAR, 2 OR 3 VIEWS CLINICAL INDICATION: Back pain status post fall. COMPARISON: None FINDINGS: Frontal, swimmer's and lateral views of the thoracic spine were obtained. Frontal and lateral views of the lumbar spine were obtained. Thoracic spine: The exam is limited due to technique and generalized osteopenia. There is a mild age-indeterminate compression fracture deformity of T12. There is no subluxation in the thoracic spine. There are multilevel osteophytes. There are calcified right infrahilar lymph nodes. There is a calcified granuloma in the left lower lobe. The aorta is tortuous and atherosclerotic. There are degenerative changes of the visualized cervical spine. Lumbar spine: The study is limited due to positioning and generalized osteopenia. There is a severe age-indeterminate compression fracture deformity of the L1 vertebral body with mild retropulsion. There is a mild compression fracture deformity of the L2 and L1 vertebral bodies which are also age indeterminate. There is a grade 1 anterolisthesis at L4/L5. There is a grade 2 anterolisthesis at L5/S1. There are multilevel osteophytes. The sacrum is obscured by overlying stool and bowel gas. There is a deformity of the left sacrum which may be posttraumatic however an acute fracture cannot be excluded. The left sacroiliac joint is not well evaluated. The right sacroiliac joint is patent. There is a right inferior approach central venous catheter with tip overlying the right pelvis. There is stress changes of the pubic symphysis. There are atherosclerotic calcifications of the aorta and branches. IMPRESSION: Limited evaluation of the thoracic and lumbar spine. Generalized osteopenia. Multilevel age-indeterminate compression fractures of the thoracic and lumbar spine as described. Deformity of the left sacrum which may be posttraumatic however an acute fracture cannot be excluded. Further evaluation with cross-sectional imaging and/or bone scan would be helpful to determine the acuity of these fractures. Grade 1 L4/L5 anterolisthesis. Grade 2 L5/S1 anterolisthesis. Signed: Alfonso Calix MD Report Verified Date/Time:11/06/2017 21:29:03 Reading Location: [facility] C013Y CT Body Reading Room Procedure Note Interface, External Ris In - 11/06/2017 9:31 PM CDT FINAL REPORT RAD, SPINE, THORACIC, 2 VIEWS, RAD, SPINE, LUMBAR, 2 OR 3 VIEWS CLINICAL INDICATION: Back pain status post fall. COMPARISON: None FINDINGS: Frontal, swimmer's and lateral views of the thoracic spine were obtained. Frontal and lateral views of the lumbar spine were obtained. Thoracic spine: The exam is limited due to technique and generalized osteopenia. There is a mild age-indeterminate compression fracture deformity of T12. There is no subluxation in the thoracic spine. There are multilevel osteophytes. There are calcified right infrahilar lymph nodes. There is a calcified granuloma in the left lower lobe. The aorta is tortuous and atherosclerotic. There are degenerative changes of the visualized cervical spine. Lumbar spine: The study is limited due to positioning and generalized osteopenia. There is a severe age-indeterminate compression fracture deformity of the L1 vertebral body with mild retropulsion. There is a mild compression fracture deformity of the L2 and L1 vertebral bodies which are also age indeterminate. There is a grade 1 anterolisthesis at L4/L5. There is a grade 2 anterolisthesis at L5/S1. There are multilevel osteophytes. The sacrum is obscured by overlying stool and bowel gas. There is a deformity of the left sacrum which may be posttraumatic however an acute fracture cannot be excluded. The left sacroiliac joint is not well evaluated. The right sacroiliac joint is patent. There is a right inferior approach central venous catheter with tip overlying the right pelvis. There is stress changes of the pubic symphysis. There are atherosclerotic calcifications of the aorta and branches. IMPRESSION: Limited evaluation of the thoracic and lumbar spine. Generalized osteopenia. Multilevel age-indeterminate compression fractures of the thoracic and lumbar spine as described. Deformity of the left sacrum which may be posttraumatic however an acute fracture cannot be excluded. Further evaluation with cross-sectional imaging and/or bone scan would be helpful to determine the acuity of these fractures. Grade 1 L4/L5 anterolisthesis. Grade 2 L5/S1 anterolisthesis. Signed: Alfonso Calix MD Report Verified Date/Time: 11/06/2017 21:29:03 Reading Location: [facility] C013Y CT Body Reading Room Performing Organization Address City/State/Zipcode Phone Number [facility] XR spine thoracic 2 views (11/06/2017 9:15 PM CDT) Specimen Narrative Performed At FINAL REPORT [facility] RAD, SPINE, THORACIC, 2 VIEWS, RAD, SPINE, LUMBAR, 2 OR 3 VIEWS CLINICAL INDICATION: Back pain status post fall. COMPARISON: None FINDINGS: Frontal, swimmer's and lateral views of the thoracic spine were obtained. Frontal and lateral views of the lumbar spine were obtained. Thoracic spine: The exam is limited due to technique and generalized osteopenia. There is a mild age-indeterminate compression fracture deformity of T12. There is no subluxation in the thoracic spine. There are multilevel osteophytes. There are calcified right infrahilar lymph nodes. There is a calcified granuloma in the left lower lobe. The aorta is tortuous and atherosclerotic. There are degenerative changes of the visualized cervical spine. Lumbar spine: The study is limited due to positioning and generalized osteopenia. There is a severe age-indeterminate compression fracture deformity of the L1 vertebral body with mild retropulsion. There is a mild compression fracture deformity of the L2 and L1 vertebral bodies which are also age indeterminate. There is a grade 1 anterolisthesis at L4/L5. There is a grade 2 anterolisthesis at L5/S1. There are multilevel osteophytes. The sacrum is obscured by overlying stool and bowel gas. There is a deformity of the left sacrum which may be posttraumatic however an acute fracture cannot be excluded. The left sacroiliac joint is not well evaluated. The right sacroiliac joint is patent. There is a right inferior approach central venous catheter with tip overlying the right pelvis. There is stress changes of the pubic symphysis. There are atherosclerotic calcifications of the aorta and branches. IMPRESSION: Limited evaluation of the thoracic and lumbar spine. Generalized osteopenia. Multilevel age-indeterminate compression fractures of the thoracic and lumbar spine as described. Deformity of the left sacrum which may be posttraumatic however an acute fracture cannot be excluded. Further evaluation with cross-sectional imaging and/or bone scan would be helpful to determine the acuity of these fractures. Grade 1 L4/L5 anterolisthesis. Grade 2 L5/S1 anterolisthesis. Signed: Alfonso Calix MD Report Verified Date/Time:11/06/2017 21:29:03 Reading Location: [facility] B1 C013Y CT Body Reading Room Procedure Note Interface, External Ris In - 11/06/2017 9:31 PM CDT FINAL REPORT RAD, SPINE, THORACIC, 2 VIEWS, RAD, SPINE, LUMBAR, 2 OR 3 VIEWS CLINICAL INDICATION: Back pain status post fall. COMPARISON: None FINDINGS: Frontal, swimmer's and lateral views of the thoracic spine were obtained. Frontal and lateral views of the lumbar spine were obtained. Thoracic spine: The exam is limited due to technique and generalized osteopenia. There is a mild age-indeterminate compression fracture deformity of T12. There is no subluxation in the thoracic spine. There are multilevel osteophytes. There are calcified right infrahilar lymph nodes. There is a calcified granuloma in the left lower lobe. The aorta is tortuous and atherosclerotic. There are degenerative changes of the visualized cervical spine. Lumbar spine: The study is limited due to positioning and generalized osteopenia. There is a severe age-indeterminate compression fracture deformity of the L1 vertebral body with mild retropulsion. There is a mild compression fracture deformity of the L2 and L1 vertebral bodies which are also age indeterminate. There is a grade 1 anterolisthesis at L4/L5. There is a grade 2 anterolisthesis at L5/S1. There are multilevel osteophytes. The sacrum is obscured by overlying stool and bowel gas. There is a deformity of the left sacrum which may be posttraumatic however an acute fracture cannot be excluded. The left sacroiliac joint is not well evaluated. The right sacroiliac joint is patent. There is a right inferior approach central venous catheter with tip overlying the right pelvis. There is stress changes of the pubic symphysis. There are atherosclerotic calcifications of the aorta and branches. IMPRESSION: Limited evaluation of the thoracic and lumbar spine. Generalized osteopenia. Multilevel age-indeterminate compression fractures of the thoracic and lumbar spine as described. Deformity of the left sacrum which may be posttraumatic however an acute fracture cannot be excluded. Further evaluation with cross-sectional imaging and/or bone scan would be helpful to determine the acuity of these fractures. Grade 1 L4/L5 anterolisthesis. Grade 2 L5/S1 anterolisthesis. Signed: Alfonso Calix MD Report Verified Date/Time: 11/06/2017 21:29:03 Reading Location: [facility] B1 C013Y CT Body Reading Room Performing Organization Address City/State/Zipcode Phone Number [facility] REPORT OF PROCEDURE - ENDOSCOPY URL (11/06/2017 3:48 PM CDT) Narrative Performed At Tissue Exam (11/06/2017 12:51 PM CDT) Case Report Surgical Pathology Report Case: [id number] [facility] Authorizing Provider:Rhonda Dixon MD Collected: 11/06/2017 1251 [facility] Ordering Location: [address] Received: 11/08/2017 0813 Service Pathologist: Hamlet Hernandez MD Specimen:Stomach, Random BXs DIAGNOSIS PART A RANDOM GASTRIC BIOPSY: [facility] FOCAL ACTIVE CHRONIC GASTRITIS. [facility] WARTHIN STARRY STAIN FOR HELICOBACTER IS NEGATIVE. Signing Pathologist Direct Phone Line: [phone] CPT Code(s) 32164, 13531 [facility] CLINICAL HISTORY GI bleed [facility] SPECIMEN SOURCE Random gastric biopsy [facility] GROSS DESCRIPTION The specimen is received in [facility] a formalin-filled container [facility] labeled with the patient's information and labeled "random stomach biopsy" and consists of three fragments of alonso tissue measuring 0.2 and 0.4 cm, submitted in A1. CG/ew MICROSCOPIC DESCRIPTION PERFORMED. [facility] SPECIAL STUDIES The following special studies were performed on this case and the interpretation is incorporated in the diagnostic report above: [facility] BLOCK A1- BENNY CALDERA [facility] Specimen Tissue Performing Organization Address City/[facility]/Zipcode Phone Number [facility] [address] [place] [address] CENTER Hemoglobin and hematocrit (11/06/2017 1:03 AM CDT) Hemoglobin 9.1 (L) 11.2 - 15.7 GM/DL [facility] Hematocrit 27.4 (L) 34.1 - 44.9 % [facility] Specimen Blood Performing Organization Address [facility] Phone Number [address] [address] CENTER Troponin I (11/06/2017 1:03 AM CDT)Only the most recent of3 resultswithin the time period is included. Troponin I 0.03 0.00 - 0.03 ng/mL [facility] Specimen Blood Narrative Performed At [facility] Troponin I (TnI) levels must be interpreted in the context of the presenting symptoms and the clinical findings. Elevated TnI levels indicate myocardial damage, but are not specific for ischemic heart disease. Elevated TnI levels are seen in patients with other cardiac conditions (including myocarditis and congestive heart failure), and slight TnI elevations occur in patients with other conditions, including sepsis, renal failure, acidosis, acute neurological disease, and persistent tachyarrhythmia. Performing Organization Address City/[facility]/Zipcode Phone Number [facility] [address] [place] [address] CENTER Vitamin B12 and Folate (11/05/2017 12:22 PM CDT) Vitamin B12 672 213 - 816 pg/mL [facility] Folate 7.8 >=7.0 ng/mL [facility] Specimen Blood Performing Organization Address City/State/Zipcode Phone Number [address] [phone] CENTER TSH/Free T4 If Indicated (11/05/2017 12:22 PM CDT) TSH 0.86 0.35 - 4.94 uIU/mL [facility] Specimen Blood Performing Organization Address [facility] Phone Number [address] [address] [phone] CENTER Iron, TIBC, % sat. (without ferritin) (11/05/2017 12:22 PM CDT) Iron 95 40 - 160 ug/dL [facility] TIBC 189 (L) 250 - 450 ug/dL [facility] Iron % Saturation 50 20 - 55 % [facility] Specimen Blood Performing Organization Address [facility] Phone Number [address] [address] [phone] CENTER aPTT (11/05/2017 12:22 PM CDT) PTT 37.7 (H) 22.5 - 36.0 seconds [facility] Specimen Blood Performing Organization Address [facility] Phone Number [address] [address] [phone] CENTER Prothrombin time/INR (11/05/2017 12:22 PM CDT) Protime 13.3 11.7 - 14.7 seconds [facility] INR 1.0 <=5.9 [facility] Specimen Blood Narrative Performed At [facility] RECOMMENDED COUMADIN/WARFARIN INR THERAPY RANGES STANDARD DOSE: 2.0 - 3.0 Includes: PROPHYLAXIS for venous thrombosis, systemic embolization; TREATMENT for venous thrombosis and/or pulmonary embolus. HIGH RISK: Target INR is 2.5-3.5 for patients with mechanical heart valves. Performing Organization Address City/[facility] Phone Number [address] [address] [phone] CENTER Reticulocyte count (11/05/2017 12:22 PM CDT) % Retic 2.0 (H) 0.5 - 1.7 % [facility] Specimen Blood Performing Organization Address [facility] Phone Number [address] [address] [phone] [place] B-type Natriuretic Factor (BNP) (11/05/2017 12:22 PM CDT) BNP 130 (H) 0 - 100 pg/mL [facility] Specimen Blood Performing Organization Address [facility] Phone Number [address] [address] [phone] [place] Ferritin (11/05/2017 12:22 PM CDT) Ferritin 256 5 - 275 ng/mL [facility] Specimen Blood Performing Organization Address [facility] Phone Number [address] [address] [place] ECG 12 lead (11/05/2017 12:03 PM CDT) Specimen Narrative Performed At Ventricular Rate 80 BPM GE MUSE Atrial Rate 80 BPM P-R Interval 160 ms QRS Duration 104 ms Q-T Interval 406 ms QTC Calculation(Bazett) 468 ms P Corbett 5 degrees R Corbett -20 degrees T Corbett -62 degrees Sinus rhythm with Premature atrial complexes Incomplete right bundle branch block Nonspecific ST and T wave abnormality Prolonged QT Abnormal ECG No previous ECGs available Confirmed by Jack ROBLERO, JOELLE ([id number]) on 11/06/2017 1:18:54 PM Procedure Note Interface, External Ris In - 11/06/2017 1:19 PM CDT Ventricular Rate 80 BPM Atrial Rate 80 BPM P-R Interval 160 ms QRS Duration 104 ms Q-T Interval 406 ms QTC Calculation(Bazett) 468 ms P Corbett 5 degrees R Corbett -20 degrees T Corbett -62 degrees Sinus rhythm with Premature atrial complexes Incomplete right bundle branch block Nonspecific ST and T wave abnormality Prolonged QT Abnormal ECG No previous ECGs available Confirmed by Jack ROBLERO BASANT ([id number]) on 11/06/2017 1:18:54 PM Performing Organization Address City/State/Zipcode Phone Number [facility] SABA after 08/11/2017 Insurance Payer Benefit Plan / Group Subscriber ID Type Phone Address MEDICARE MEDICARE A B xxxxxxxxxxx Medicare MCR [employer] SENIOR SUPPLEMENTAL xxxxxxxxx SUPPLEMENT/INDIVIDUAL Advance Directives For more information, please contact:[address] [phone] Code Status Date Activated Date Inactivated Comments Partial Code 11/08/2017 3:27 PM 11/09/2017 7:48 PM This code status was determined by: Patient patient and daughter Drug Protocol After Arrest Occurs? No Mechanical Ventilation with Intubation? No Bag/Mask? No Internal/External Pacemaker? No Transfer to Critical Care? No Chest Compressions? No Defibrillation/Cardioversion? No Full Code 11/05/2017 11:27 AM 11/08/2017 3:27 PM This code status was determined by: Patient
--- OUTSIDE RECORDS SUMMARY | 2018-08-12 23:53 | XMS REPORT ---
:1935 [facility] Address [address] [place] [address] Care Team Providers Name Role Phone JAYSHREE MORGAN Unavailable Unavailable Problems This patient has no known problems. Allergies, Adverse Reactions, Alerts This patient has no known allergies or adverse reactions. Medications This patient has no known medications. Results Test Description Test Time Test Comments Text Results Atomic Results Result Comments COMPREHENSIVE METABOLIC PANEL 2017-11-09 08:25:00 Test Item Value Reference Range Comments TOTAL PROTEIN (BEAKER) (test 5.4 gm/dL 6.0-8.3 dove=508) ALBUMIN (BEAKER) (test 3.2 g/dL 3.5-5.0 hfcg=1423) ALKALINE PHOSPHATASE 98 U/L 40-150 (BEAKER) (test xfor=474) BILIRUBIN TOTAL (BEAKER) 0.7 mg/dL 0.2-1.2 (test ujtu=095) SODIUM (BEAKER) (test 133 meq/L 136-145 hkca=996) POTASSIUM (BEAKER) (test 3.5 meq/L 3.5-5.1 tvmx=399) CHLORIDE (BEAKER) (test 90 meq/L 98-107 hwkb=689) CO2 (BEAKER) (test eueo=446) 34 meq/L 22-29 BLOOD UREA NITROGEN (BEAKER) 6 mg/dL 7-21 (test qpmz=968) CREATININE (BEAKER) (test 0.59 mg/dL 0.57-1.25 qkux=433) GLUCOSE RANDOM (BEAKER) 98 mg/dL 70-105 (test bqsp=284) CALCIUM (BEAKER) (test 9.3 mg/dL 8.4-10.2 lcat=067) AST (SGOT) (BEAKER) (test 30 U/L 5-34 dfmv=863) ALT (SGPT) (BEAKER) (test 25 U/L 6-55 nuul=331) EGFR (BEAKER) (test 97 mL/min/1.73 sq m ESTIMATED GFR IS NOT gski=6669) ACCURATE CREATININE CLEARANCE IN PREDICTING GLOMERULAR FILTRATION RATE. ESTIMATED GFR IS NOT APPLICABLE FOR DIALYSIS PATIENTS. Peripheral [id number] 02:45:00 Test Item Value Reference Range Comments RPR SCREEN (BEAKER) (test ubsf=658) Nonreactive Nonreactive TISSUE [id number] 16:44:00Surgical Pathology Report Case: [id number] Authorizing Provider: Rhonda Dixon MD Collected: 11/06/2017 1251 Ordering Location: [address] Received: 11/08/2017 0813 Service Pathologist: Hamlet Hernandez MD Specimen: Stomach, Random BXs PART A RANDOM GASTRIC BIOPSY: FOCAL ACTIVE CHRONIC GASTRITIS.WARTHIN STARRY STAIN FOR HELICOBACTER IS NEGATIVE. Signing Pathologist Direct Phone Line: [phone] signed by Hamlet Hernandez MD on 11/08/2017 at 4:44 [id number], [id number] bleedRandom gastric biopsy The specimen is received in a formalin-filled container labeled with the patient's information and labeled "random stomach biopsy" and consists of three fragments of alonso tissue measuring 0.2 and 0.4 cm, submitted in A1. CG/ew PERFORMED.The following special studies were performed on this case and the interpretation is incorporated in the diagnostic report above:BLOCK A1- WARTHIN [id number] 12:06:00 Test Item Value Reference Range Comments PHOSPHORUS (BEAKER) (test tnrv=224) 2.2 mg/dL 2.3-4.7 [id number] 12:06:00 Test Item Value Reference Range Comments MAGNESIUM (BEAKER) (test yzjf=218) 2.5 mg/dL 1.6-2.6 [id number] 07:35:00 Test Item Value Reference Range Comments PHOSPHORUS (BEAKER) (test wwbi=007) 2.1 mg/dL 2.3-4.7 [id number] 07:35:00 Test Item Value Reference Range Comments MAGNESIUM (BEAKER) (test dona=015) 1.7 mg/dL 1.6-2.6 COMPREHENSIVE METABOLIC [id number] 07:35:00 Test Item Value Reference Range Comments TOTAL PROTEIN (BEAKER) 5.3 gm/dL 6.0-8.3 (test ampm=704) ALBUMIN (BEAKER) (test 3.1 g/dL 3.5-5.0 hezv=6331) ALKALINE PHOSPHATASE 93 U/L 40-150 (BEAKER) (test chva=305) BILIRUBIN TOTAL (BEAKER) 0.7 mg/dL 0.2-1.2 (test bejv=636) SODIUM (BEAKER) (test 129 meq/L 136-145 vhqk=597) POTASSIUM (BEAKER) (test 3.3 meq/L 3.5-5.1 eqxb=140) CHLORIDE (BEAKER) (test 90 meq/L 98-107 bjdw=309) CO2 (BEAKER) (test 35 meq/L 22-29 hndf=219) BLOOD UREA NITROGEN 9 mg/dL 7-21 (BEAKER) (test qwgn=494) CREATININE (BEAKER) (test 0.57 mg/dL 0.57-1.25 nyvp=324) GLUCOSE RANDOM (BEAKER) 89 mg/dL 70-105 (test bmyi=832) CALCIUM (BEAKER) (test 9.1 mg/dL 8.4-10.2 qjcb=226) AST (SGOT) (BEAKER) (test 26 U/L 5-34 slhi=941) ALT (SGPT) (BEAKER) (test 20 U/L 6-55 pkig=983) EGFR (BEAKER) (test 101 mL/min/1.73 sq ESTIMATED GFR IS NOT fztu=7070) m ACCURATE CREATININE CLEARANCE IN PREDICTING GLOMERULAR FILTRATION RATE. ESTIMATED GFR IS NOT APPLICABLE FOR DIALYSIS PATIENTS. CBC W/PLT COUNT & AUTO [id number] 06:40:00 Test Item Value Reference Range Comments WHITE BLOOD CELL COUNT (BEAKER) (test zosw=652) 11.0 K/ L 3.5-10.5 RED BLOOD CELL COUNT (BEAKER) (test nujr=464) 2.73 M/ L 3.93-5.22 HEMOGLOBIN (BEAKER) (test iooz=660) 8.7 GM/DL 11.2-15.7 HEMATOCRIT (BEAKER) (test bwga=086) 25.7 % 34.1-44.9 MEAN CORPUSCULAR VOLUME (BEAKER) (test uzbp=509) 94.1 fL 79.4-94.8 MEAN CORPUSCULAR HEMOGLOBIN (BEAKER) (test 31.9 pg 25.6-32.2 lwhy=055) MEAN CORPUSCULAR HEMOGLOBIN CONC (BEAKER) (test 33.9 GM/DL 32.2-35.5 rwpa=868) RED CELL DISTRIBUTION WIDTH (BEAKER) (test 14.6 % 11.7-14.4 pqnr=784) PLATELET COUNT (BEAKER) (test dgly=630) 264 K/CU MM 150-450 MEAN PLATELET VOLUME (BEAKER) (test opdv=308) 9.6 fL 9.4-12.3 NUCLEATED RED BLOOD CELLS (BEAKER) (test 0 /100 WBC 0-0 ikjz=328) NEUTROPHILS RELATIVE PERCENT (BEAKER) (test 83 % spgs=493) LYMPHOCYTES RELATIVE PERCENT (BEAKER) (test 7 % goix=253) MONOCYTES RELATIVE PERCENT (BEAKER) (test 9 % orao=910) EOSINOPHILS RELATIVE PERCENT (BEAKER) (test 1 % lhty=365) BASOPHILS RELATIVE PERCENT (BEAKER) (test 0 % ypaa=113) NEUTROPHILS ABSOLUTE COUNT (BEAKER) (test 9.12 K/ L 1.56-6.13 lsqw=494) LYMPHOCYTES ABSOLUTE COUNT (BEAKER) (test 0.71 K/ L 1.18-3.74 dxkn=318) MONOCYTES ABSOLUTE COUNT (BEAKER) (test 1.01 K/ L 0.24-0.36 uaiu=940) EOSINOPHILS ABSOLUTE COUNT (BEAKER) (test 0.08 K/ L 0.04-0.36 hdaz=590) BASOPHILS ABSOLUTE COUNT (BEAKER) (test 0.02 K/ L 0.01-0.08 qtaz=034) IMMATURE GRANULOCYTES-RELATIVE PERCENT (BEAKER) 1 % 0-1 (test xpgu=8733) RAD, CHEST, 1 VIEW, NON [id number] 18:26:00Reason for exam:-> hypoxemiaShould this be performed at the bedside?->YesFINAL REPORT Portable chest. Clinical history: Hypoxemia. COMPARISON STUDY: None available. FINDINGS: The cardiac size is enlarged. The aorta is tortuous. Atelectatic changes arenoted in the lung bases. There is no focal opacity, pleural effusion or pneumothorax. Degenerative changes are seen. IMPRESSION: Cardiomegaly with mild interstitial markings. Signed: Benjamín Christianson MDReport Verified Date/Time: 11/07/2017 18:26:32 Reading Location: [facility] B1 C013Y CT Body Reading Room 06: 26 PMCBC W/PLT COUNT & AUTO [id number] 07:46:00 Test Item Value Reference Range Comments WHITE BLOOD CELL COUNT (BEAKER) (test kwdo=614) 10.1 K/ L 3.5-10.5 RED BLOOD CELL COUNT (BEAKER) (test kpdy=657) 2.66 M/ L 3.93-5.22 HEMOGLOBIN (BEAKER) (test kaqo=637) 8.2 GM/DL 11.2-15.7 HEMATOCRIT (BEAKER) (test npsx=293) 25.1 % 34.1-44.9 MEAN CORPUSCULAR VOLUME (BEAKER) (test sqtb=994) 94.4 fL 79.4-94.8 MEAN CORPUSCULAR HEMOGLOBIN (BEAKER) (test 30.8 pg 25.6-32.2 oruf=537) MEAN CORPUSCULAR HEMOGLOBIN CONC (BEAKER) (test 32.7 GM/DL 32.2-35.5 jcst=581) RED CELL DISTRIBUTION WIDTH (BEAKER) (test 14.5 % 11.7-14.4 jvdx=397) PLATELET COUNT (BEAKER) (test bqem=984) 207 K/CU MM 150-450 MEAN PLATELET VOLUME (BEAKER) (test wmuh=753) 9.5 fL 9.4-12.3 NUCLEATED RED BLOOD CELLS (BEAKER) (test 0 /100 WBC 0-0 frpt=528) NEUTROPHILS RELATIVE PERCENT (BEAKER) (test 87 % ndxo=111) LYMPHOCYTES RELATIVE PERCENT (BEAKER) (test 6 % jlxz=439) MONOCYTES RELATIVE PERCENT (BEAKER) (test 6 % rcem=400) EOSINOPHILS RELATIVE PERCENT (BEAKER) (test 0 % fuxr=024) BASOPHILS RELATIVE PERCENT (BEAKER) (test 0 % ztsk=026) NEUTROPHILS ABSOLUTE COUNT (BEAKER) (test 8.81 K/ L 1.56-6.13 mdae=509) LYMPHOCYTES ABSOLUTE COUNT (BEAKER) (test 0.58 K/ L 1.18-3.74 llep=005) MONOCYTES ABSOLUTE COUNT (BEAKER) (test 0.61 K/ L 0.24-0.36 qtrt=172) EOSINOPHILS ABSOLUTE COUNT (BEAKER) (test 0.03 K/ L 0.04-0.36 ttej=005) BASOPHILS ABSOLUTE COUNT (BEAKER) (test 0.01 K/ L 0.01-0.08 mxep=770) IMMATURE GRANULOCYTES-RELATIVE PERCENT (BEAKER) 1 % 0-1 (test rvdu=6916) [id number] 07:45:00 Test Item Value Reference Range Comments MAGNESIUM (BEAKER) (test voen=216) 1.3 mg/dL 1.6-2.6 COMPREHENSIVE METABOLIC [id number] 07:45:00 Test Item Value Reference Range Comments TOTAL PROTEIN (BEAKER) 5.0 gm/dL 6.0-8.3 (test xjkh=335) ALBUMIN (BEAKER) (test 3.0 g/dL 3.5-5.0 sfti=6828) ALKALINE PHOSPHATASE 92 U/L 40-150 (BEAKER) (test tbim=924) BILIRUBIN TOTAL (BEAKER) 0.6 mg/dL 0.2-1.2 (test vytt=697) SODIUM (BEAKER) (test 135 meq/L 136-145 zhpc=264) POTASSIUM (BEAKER) (test 3.7 meq/L 3.5-5.1 cwto=591) CHLORIDE (BEAKER) (test 97 meq/L 98-107 bahu=642) CO2 (BEAKER) (test 33 meq/L 22-29 asro=116) BLOOD UREA NITROGEN 10 mg/dL 7-21 (BEAKER) (test fqer=442) CREATININE (BEAKER) (test 0.51 mg/dL 0.57-1.25 fzay=204) GLUCOSE RANDOM (BEAKER) 103 mg/dL 70-105 (test vhwa=283) CALCIUM (BEAKER) (test 9.0 mg/dL 8.4-10.2 dwqu=220) AST (SGOT) (BEAKER) (test 22 U/L 5-34 gppb=142) ALT (SGPT) (BEAKER) (test 21 U/L 6-55 isbx=444) EGFR (BEAKER) (test 115 mL/min/1.73 sq ESTIMATED GFR IS NOT qtpe=4855) m ACCURATE CREATININE CLEARANCE IN PREDICTING GLOMERULAR FILTRATION RATE. ESTIMATED GFR IS NOT APPLICABLE FOR DIALYSIS PATIENTS. CT, SPINE, THORACIC, WO [id number] 01:15:00FINAL REPORT CLINICAL HISTORY: Trauma and pain, abnormal x-ray evaluation ofthe thoracic and lumbar spine COMPARISON: None. Correlation is made with thoracic lumbar x-ray series from the same date. FINDINGS: Multiple axial images of the thoracic and lumbar spine were performedwithout IV contrast. Coronal and sagittal reformats were [...] pars deformities with 14 mm of anterolisthesis ofL5 on S1 and associated severe degenerative disc disease and bilateral neural foraminal narrowing. Loss of disc space height is seen elsewhere at T12-L1, L1-L2 and L4-L5. There is facet hypertrophy atL4-L5 and L5- S1 with associated bony neural foraminal narrowing. There [...] communicated to the overnight resident covering [address] [place] at 0115 hours on the date of the examination. Partially visualized cardiomegaly. Evidenceof granulomatous exposure. 1.6 cm partially visualized right thyroid nodule. Please see below for published recommendations related to follow-up. Recommendations for f/u of Incidental Thyroid Nodules( ITN) found on CT, MRI, NM and Extrathyroidal [...] axial plane in patients >=35 years of ageo Heterogeneous enlarged thyroid gland o ITN avid [...] patients with limited life expectancy or significant co- morbidities, unless clinically warranted. 4. These recommendations do not apply to patients with increased risk for thyroid cancer or to patients with symptomatic thyroid disease. Signed: Dwain Ellis MDReport Verified Date/Time: 11/07/2017 01:15:07 Reading Location: [address] Reading Room CT, SPINE, LUMBAR, WO [id number] 01:15:00FINAL REPORT CLINICAL HISTORY: Trauma and pain, abnormal x- ray evaluation ofthe thoracic and lumbar spine COMPARISON: None. Correlation is made with thoracic lumbar x-ray series from the same date. FINDINGS: Multiple axial images of the thoracic and lumbar spine were performedwithout IV contrast. Coronal and sagittal reformats were [...] and splenic parenchymal granulomata are present. LUMBAR SPINE : There are 5 nonrib-bearing lumbar vertebral levels. [...] pars deformities with 14 mm of anterolisthesis ofL5 on S1 and associated severe degenerative disc disease and bilateral neural foraminal narrowing. Loss of disc space height is seen elsewhere at T12-L1, L1-L2 and L4-L5. There is facet hypertrophy atL4-L5 and L5-S1 with associated bony neural foraminal [...] was communicated to the overnight resident covering [place] at 0115 hours on the date of the examination. Partially visualized cardiomegaly. Evidenceof granulomatous exposure. 1.6 cm partially visualized right thyroid nodule. Please see below for published recommendations related to follow-up. Recommendations for f/u of Incidental Thyroid Nodules(ITN) found on CT, MRI, NM and Extrathyroidal [...] axial plane in patients >=35 years of ageo Heterogeneous enlarged thyroid gland o ITN avid [...] to patients with symptomatic thyroid disease. Signed: Dwain Ellis MDReport Verified Date/Time: 11/07/2017 01:15:07 Reading Location: [address] Reading Room Electronically signed by: DWAIN ELLIS M.D. on 01:15 AMRAD, SPINE, THORACIC, 2 [id number] 21:29:00Reason for exam :->pain post fallFINAL REPORT RAD, SPINE, THORACIC, 2 VIEWS, RAD, SPINE, LUMBAR, 2 OR 3 VIEWS CLINICAL INDICATION: Back pain status post fall. COMPARISON: None FINDINGS: Frontal, swimmer's andlateral views of the thoracic spine were obtained. Frontal and lateral views of the lumbar spine were obtained. Thoracic spine:The exam is limited due to technique and [...] changes of the visualized cervical spine. Lumbar spine:The study is limited due to positioning and generalized osteopenia. There is a severe age-indeterminate compression fracture deformityof the L1 vertebral body with mild retropulsion. There is a mild compression fracture deformity of the L2 and L1 vertebral bodies which are also age indeterminate. There is a grade 1 anterolisthesis atL4/L5. There is a grade 2 anterolisthesis at [...] branches. IMPRESSION: Limited evaluation of the thoracic andlumbar spine.Generalized osteopenia.Multilevel age-indeterminate compression fractures of the thoracic and lumbar spine as described. Deformity of the left sacrum which may be posttraumatic however an acute fracture cannot be excluded. Further evaluation with cross-sectional imaging and/or bone scan would be helpful to determine the acuity of these fractures.Grade 1 L4/L5 anterolisthesis. Grade 2 L5/S1 anterolisthesis. Signed: Chelsea Calix MDReport Verified Date/Time: 11/06/2017 21:29:03 Reading Location: [facility] C013Y CT Body Reading Room RAD, SPINE, LUMBAR, 2 OR 3 [id number] 21:29:00Reason for exam:->back pian post fallFINAL REPORT RAD, SPINE, THORACIC, 2 VIEWS, RAD, SPINE, LUMBAR , 2 OR 3 VIEWS CLINICAL INDICATION: Back pain status post fall. COMPARISON: None FINDINGS: Frontal, swimmer's andlateral views of the thoracic spine were obtained. Frontal and lateral views of the lumbar spine were obtained. Thoracic spine:The exam is limited due to technique and [...] changes of the visualized cervical spine. Lumbar spine:The study is limited due to positioning and generalized osteopenia. There is a severe age- indeterminate compression fracture deformityof the L1 vertebral body with mild retropulsion. There is a mild compression fracture deformity of the L2 and L1 vertebral bodies which are also age indeterminate. There is a grade 1 anterolisthesis atL4/L5. There is a grade 2 anterolisthesis at [...] branches. IMPRESSION: Limited evaluation of the thoracic andlumbar spine.Generalized osteopenia.Multilevel age-indeterminate compression fractures of the thoracic and lumbar spine as described. Deformity of the left sacrum which may be posttraumatic however an acute fracture cannot be excluded. Further evaluation with cross-sectional imaging and/or bone scan would be helpful to determine the acuity of these fractures.Grade 1 L4/L5 anterolisthesis. Grade 2 L5/S1 anterolisthesis. Signed: Chelsea Calix MDReport Verified Date/Time: 11/06/2017 21:29:03 Reading Location: [facility] C013Y CT Body Reading Room Electronically signed by: CHELSEA CALIX MD on 2017 09:29 PMCBC W/PLT COUNT & AUTO [id number] 06:33:00 Test Item Value Reference Range Comments WHITE BLOOD CELL COUNT (BEAKER) (test toss=340) 11.4 K/ L 3.5-10.5 RED BLOOD CELL COUNT (BEAKER) (test wewm=567) 2.77 M/ L 3.93-5.22 HEMOGLOBIN (BEAKER) (test omxy=033) 8.8 GM/DL 11.2-15.7 HEMATOCRIT (BEAKER) (test muma=654) 26.0 % 34.1-44.9 MEAN CORPUSCULAR VOLUME (BEAKER) (test ryzb=213) 93.9 fL 79.4-94.8 MEAN CORPUSCULAR HEMOGLOBIN (BEAKER) (test 31.8 pg 25.6-32.2 loof=852) MEAN CORPUSCULAR HEMOGLOBIN CONC (BEAKER) (test 33.8 GM/DL 32.2-35.5 cflz=436) RED CELL DISTRIBUTION WIDTH (BEAKER) (test 14.5 % 11.7-14.4 xmtc=058) PLATELET COUNT (BEAKER) (test bjqw=382) 214 K/CU MM 150-450 MEAN PLATELET VOLUME (BEAKER) (test kwyk=358) 9.3 fL 9.4-12.3 NUCLEATED RED BLOOD CELLS (BEAKER) (test 0 /100 WBC 0-0 mzdl=314) NEUTROPHILS RELATIVE PERCENT (BEAKER) (test 85 % ifrg=767) LYMPHOCYTES RELATIVE PERCENT (BEAKER) (test 6 % gjzv=496) MONOCYTES RELATIVE PERCENT (BEAKER) (test 8 % juiw=984) EOSINOPHILS RELATIVE PERCENT (BEAKER) (test 0 % riam=253) BASOPHILS RELATIVE PERCENT (BEAKER) (test 0 % fdxs=166) NEUTROPHILS ABSOLUTE COUNT (BEAKER) (test 9.71 K/ L 1.56-6.13 yhpu=609) LYMPHOCYTES ABSOLUTE COUNT (BEAKER) (test 0.71 K/ L 1.18-3.74 rpkp=621) MONOCYTES ABSOLUTE COUNT (BEAKER) (test 0.85 K/ L 0.24-0.36 itio=602) EOSINOPHILS ABSOLUTE COUNT (BEAKER) (test 0.01 K/ L 0.04-0.36 knuz=478) BASOPHILS ABSOLUTE COUNT (BEAKER) (test 0.02 K/ L 0.01-0.08 ujog=257) IMMATURE GRANULOCYTES-RELATIVE PERCENT (BEAKER) 1 % 0-1 (test aqad=5849) [id number] 06:05:00 Test Item Value Reference Range Comments PHOSPHORUS (BEAKER) (test ccsd=567) 2.0 mg/dL 2.3-4.7 [id number] 06:05:00 Test Item Value Reference Range Comments MAGNESIUM (BEAKER) (test mdhw=394) 1.6 mg/dL 1.6-2.6 COMPREHENSIVE METABOLIC [id number] 06:05:00 Test Item Value Reference Range Comments TOTAL PROTEIN (BEAKER) 5.0 gm/dL 6.0-8.3 (test rmll=900) ALBUMIN (BEAKER) (test 3.0 g/dL 3.5-5.0 dqmd=2814) ALKALINE PHOSPHATASE 88 U/L 40-150 (BEAKER) (test ghnh=042) BILIRUBIN TOTAL (BEAKER) 0.6 mg/dL 0.2-1.2 (test avuu=633) SODIUM (BEAKER) (test 137 meq/L 136-145 avuw=790) POTASSIUM (BEAKER) (test 3.8 meq/L 3.5-5.1 yhgo=594) CHLORIDE (BEAKER) (test 100 meq/L 98-107 slhj=120) CO2 (BEAKER) (test 33 meq/L 22-29 wylx=680) BLOOD UREA NITROGEN 29 mg/dL 7-21 (BEAKER) (test fgnr=733) CREATININE (BEAKER) (test 0.55 mg/dL 0.57-1.25 camy=180) GLUCOSE RANDOM (BEAKER) 109 mg/dL 70-105 (test atwj=588) CALCIUM (BEAKER) (test 8.9 mg/dL 8.4-10.2 sywl=721) AST (SGOT) (BEAKER) (test 24 U/L 5-34 dump=333) ALT (SGPT) (BEAKER) (test 20 U/L 6-55 mfww=703) EGFR (BEAKER) (test 106 mL/min/1.73 sq ESTIMATED GFR IS NOT rygs=5709) m ACCURATE CREATININE CLEARANCE IN PREDICTING GLOMERULAR FILTRATION RATE. ESTIMATED GFR IS NOT APPLICABLE FOR DIALYSIS PATIENTS. TROPONIN [id number] 01:43:00 Test Item Value Reference Range Comments TROPONIN I (BEAKER) (test vebt=336) 0.03 ng/mL 0.00-0.03 Troponin I (TnI) levels must be interpreted [...] failure, acidosis, acute neurological disease, and persistent tachyarrhythmia.HEMOGLOBIN AND [id number] 01: 21:00 Test Item Value Reference Range Comments HEMOGLOBIN (BEAKER) (test uruw=993) 9.1 GM/DL 11.2-15.7 HEMATOCRIT (BEAKER) (test ufpa=753) 27.4 % 34.1-44.9 TROPONIN [id number] 17:48:00 Test Item Value Reference Range Comments TROPONIN I (BEAKER) (test gtdr=721) 0.05 ng/mL 0.00-0.03 Troponin I (TnI) levels must be interpreted [...] failure, acidosis, acute neurological disease, and persistent tachyarrhythmia.[id number] 15:14:00 Test Item Value Reference Range Comments PARTIAL THROMBOPLASTIN TIME (BEAKER) (test 37.7 seconds 22.5-36.0 dvno=771) [id number] 14:58:00 Test Item Value Reference Range Comments FERRITIN (BEAKER) (test oagn=290) 256 ng/mL 5-275 TSH/FREE T4 IF [id number] 13:47:00 Test Item Value Reference Range Comments THYROID STIMULATING HORMONE (BEAKER) (test 0.86 uIU/mL 0.35-4.94 bmxt=251) VITAMIN B12 AND [id number] 13:47:00 Test Item Value Reference Range Comments VITAMIN B12 (BEAKER) (test cpop=856) 672 pg/mL 213-816 FOLATE (BEAKER) (test ufdn=280) 7.8 ng/mL >=7.0 B-TYPE NATRIURETIC FACTOR (BNP)2017-11-05 13:18:00 Test Item Value Reference Range Comments B-TYPE NATRIURETIC PEPTIDE (BEAKER) (test 130 pg/mL 0-100 ybgp=362) TROPONIN [id number] 13:17:00 Test Item Value Reference Range Comments TROPONIN I (BEAKER) (test lbia=451) 0.05 ng/mL 0.00-0.03 Troponin I (TnI) levels must be interpreted [...] failure, acidosis, acute neurological disease, and persistent tachyarrhythmia.IRON, TIBC, % SAT. (WITHOUT FERRITIN) 2017-11-05 13:12:00 Test Item Value Reference Range Comments IRON (BEAKER) (test xsxo=850) 95 ug/dL 40-160 TOTAL IRON BINDING CAPACITY (BEAKER) (test 189 ug/dL 250-450 kdcx=816) IRON % SATURATION (2) (BEAKER) (test gvxx=9757) 50 % 20-55 [id number] 13:11:00 Test Item Value Reference Range Comments PHOSPHORUS (BEAKER) (test dctr=298) 1.7 mg/dL 2.3-4.7 [id number] 13:11:00 Test Item Value Reference Range Comments MAGNESIUM (BEAKER) (test dtmt=655) 1.5 mg/dL 1.6-2.6 COMPREHENSIVE METABOLIC [id number] 13:11:00 Test Item Value Reference Range Comments TOTAL PROTEIN (BEAKER) 5.5 gm/dL 6.0-8.3 (test gbli=696) ALBUMIN (BEAKER) (test 3.3 g/dL 3.5-5.0 lkcy=1256) ALKALINE PHOSPHATASE 95 U/L 40-150 (BEAKER) (test tjke=616) BILIRUBIN TOTAL (BEAKER) 0.6 mg/dL 0.2-1.2 (test kwbt=128) SODIUM (BEAKER) (test 132 meq/L 136-145 wsrg=172) POTASSIUM (BEAKER) (test 2.9 meq/L 3.5-5.1 wdky=486) CHLORIDE (BEAKER) (test 94 meq/L 98-107 bqal=557) CO2 (BEAKER) (test 30 meq/L 22-29 fcyd=715) BLOOD UREA NITROGEN 56 mg/dL 7-21 (BEAKER) (test tjzc=865) CREATININE (BEAKER) (test 0.74 mg/dL 0.57-1.25 phwf=949) GLUCOSE RANDOM (BEAKER) 142 mg/dL 70-105 (test pomv=822) CALCIUM (BEAKER) (test 9.2 mg/dL 8.4-10.2 ribu=547) AST (SGOT) (BEAKER) (test 26 U/L 5-34 vfjd=584) ALT (SGPT) (BEAKER) (test 20 U/L 6-55 sscz=407) EGFR (BEAKER) (test 75 mL/min/1.73 sq m ESTIMATED GFR IS NOT qpht=9392) ACCURATE CREATININE CLEARANCE IN PREDICTING GLOMERULAR FILTRATION RATE. ESTIMATED GFR IS NOT APPLICABLE FOR DIALYSIS PATIENTS. PROTHROMBIN [id number] 13:03:00 Test Item Value Reference Range Comments PROTIME (BEAKER) (test bxwa=974) 13.3 seconds 11.7-14.7 INR (BEAKER) (test dwnv=116) 1.0 <=5.9 RECOMMENDED COUMADIN/WARFARIN INR THERAPY RANGESSTANDARD DOSE: 2.0 - 3.0 Includes: PROPHYLAXIS forvenous thrombosis, systemic embolization; TREATMENT for venous thrombosis and/or pulmonary embolus.HIGH RISK: Target INR is 2.5-3.5 for patients with mechanical heart valves.CBC W/PLT COUNT & AUTO [id number] 12:51:00 Test Item Value Reference Range Comments WHITE BLOOD CELL COUNT (BEAKER) (test lfnv=160) 16.4 K/ L 3.5-10.5 RED BLOOD CELL COUNT (BEAKER) (test txmt=050) 3.38 M/ L 3.93-5.22 HEMOGLOBIN (BEAKER) (test gvkj=720) 10.7 GM/DL 11.2-15.7 HEMATOCRIT (BEAKER) (test ftwl=896) 30.8 % 34.1-44.9 MEAN CORPUSCULAR VOLUME (BEAKER) (test jahc=869) 91.1 fL 79.4-94.8 MEAN CORPUSCULAR HEMOGLOBIN (BEAKER) (test 31.7 pg 25.6-32.2 yeue=021) MEAN CORPUSCULAR HEMOGLOBIN CONC (BEAKER) (test 34.7 GM/DL 32.2-35.5 pgxr=336) RED CELL DISTRIBUTION WIDTH (BEAKER) (test 14.0 % 11.7-14.4 nxyz=942) PLATELET COUNT (BEAKER) (test doin=500) 271 K/CU MM 150-450 MEAN PLATELET VOLUME (BEAKER) (test qhkl=373) 9.4 fL 9.4-12.3 NUCLEATED RED BLOOD CELLS (BEAKER) (test 0 /100 WBC 0-0 omjj=775) NEUTROPHILS RELATIVE PERCENT (BEAKER) (test 90 % mcqa=146) LYMPHOCYTES RELATIVE PERCENT (BEAKER) (test 4 % oyhw=114) MONOCYTES RELATIVE PERCENT (BEAKER) (test 6 % jxif=233) EOSINOPHILS RELATIVE PERCENT (BEAKER) (test 0 % wenl=279) BASOPHILS RELATIVE PERCENT (BEAKER) (test 0 % kecw=264) NEUTROPHILS ABSOLUTE COUNT (BEAKER) (test 14.67 K/ L 1.56-6.13 yhaw=858) LYMPHOCYTES ABSOLUTE COUNT (BEAKER) (test 0.60 K/ L 1.18-3.74 bidh=318) MONOCYTES ABSOLUTE COUNT (BEAKER) (test 0.96 K/ L 0.24-0.36 jwks=259) EOSINOPHILS ABSOLUTE COUNT (BEAKER) (test 0.00 K/ L 0.04-0.36 arhj=588) BASOPHILS ABSOLUTE COUNT (BEAKER) (test 0.02 K/ L 0.01-0.08 jffv=520) IMMATURE GRANULOCYTES-RELATIVE PERCENT (BEAKER) 1 % 0-1 (test ally=2255) RETICULOCYTE [id number] 12:48:00 Test Item Value Reference Range Comments RETICULOCYTE COUNT PCT (BEAKER) (test uohx=890) 2.0 % 0.5-1.7
[2018-08-13] MEDS ORDERED: HYDROCODONE/APAP 5/325 MG TAB ONE (00:36)
--- NOTE | 2018-08-13 02:00 | ER ---
Nurse's Notes [facility] Name: Kathy George Age: 82 yrs Sex: Female : 1935 Arrival Date: 08/12/2018 Time: 23:52 Bed 20 Private MD: Diagnosis: Multiple fractures of ribs, left side Presentation: 08/12 23:57 Presenting complaint: EMS states: they were toned out for report of pt having fallen bb while transferring from the toilet pt c/o pain to top of hips, neck, left shoulder area. Care prior to arrival: None. Mechanism of Injury: Fall. Trauma event details: Injury occurred in the [facility], Injury occurred: at home. Injury occurred: August 12, 2018. 23:57 Acuity: WILIAM 3 bb 23:57 Method Of Arrival: EMS: [facility] 08/13 00:02 Transition of care: patient was not received from another setting of care. Onset of bb symptoms was August 13, 2018. Risk Assessment: Do you want to hurt yourself or someone else? Patient reports no desire to harm self or others. Initial Sepsis Screen: Does the patient meet any 2 criteria? No. Patient's initial sepsis screen is negative. Does the patient have a suspected source of infection? No. Patient's initial sepsis screen is negative. Trauma Activation: Alert Physician: ED Physician; Name: Dr Ferrer; Notified At: 23:46; Arrived At: 23:46 Physician: General Surgeon; Name: ; Notified At: 23:46; Arrived At: Physician: Radiology; Name: Gertrude Macedo; Notified At: 23:46; Arrived At: 23:50 Physician: Respiratory; Name: ; Notified At: 23:46; Arrived At: Physician: Lab; Name: ; Notified At: 23:46; Arrived At: Historical: - Allergies: 00:05 Morphine; bb - Home Meds: 00:05 hydrocodone-acetaminophen 5-325 mg Oral tab 1 tab every 6 hours [Active]; pantoprazole bb 40 mg oral TbEC 1 tab once daily [Active]; bupropion HCl 150 mg Oral Tb24 1 tab twice a day [Active]; Docusate Sodium Oral [Active]; potassium chloride 20 mEq Oral TbER 1 tab once daily [Active]; amlodipine 5 mg tab 1 tab once daily [Active]; quetiapine 25 mg oral tab 1 tab 3 times per day [Active]; Lasix 40 mg Oral tab 1 tab once daily [Active]; hydrochlorothiazide 12.5 mg Oral cap 1 cap once daily [Active]; - Immunization history: Last tetanus immunization: unknown. - Social history:: Smoking status: unknown Patient/guardian denies using alcohol, street drugs, The patient lives with family. - Ebola Screening: : No symptoms or risks identified at this time. - Family history:: not pertinent. Screenin/21 23:57 Abuse screen: Denies threats or abuse. Tuberculosis screening: No symptoms or risk bb factors identified. 08/13 00:18 Nutritional screening: No deficits noted. Fall Risk Fall in past 12 months (25 points). jd3 Ambulatory Aid- None/Bed Rest/Nurse Assist (0 pts). Gait- Weak (10 pts.). Mental Status- Oriented to own ability (0 pts). Total [place] Fall Scale indicates Low Risk Score (25-44 pts). Fall prevention measures have been instituted. Side Rails Up X 2 Placed close to Nursing Station Frequent Obs/Assesments occuring Family Present and informed to notify staff if they need to leave bedside. Primary Survey: 08/12 23:56 NO uncontrolled hemorrhage observed. A: The patient is alert. Airway: patent, No jd3 supplemental oxygen in use on arrival. Oral cavity: clear, Trachea midline. Breathing/Chest: Respiratory pattern: regular, Respiratory effort: spontaneous, unlabored, Breath sounds: clear, bilaterally. Chest inspection:. Circulation: Heart tones present. Pulses: palpable right radial artery, right posterior tibial artery, left radial artery and left posterior tibial artery. Skin color: pink, Skin temperature: warm. Disability Alert. Exposure/Environment: All clothing and personal items were removed. Forensic evidence collection is not deemed to be indicated at this time. Items placed in patient belonging bag. There is no evidence of uncontrolled external bleeding. Obvious injury(ies) are noted at this time: small skin tear with no bleeding noted to right elbow. 08/13 00:43 Reassessment Airway Airway Patent Oxygen No O2 Breathing/Chest Respiratory pattern jd3 Regular Respiratory effort Spontaneous Unlabored Breath sounds Clear Chest inspection Symmetrical Circulation Heart tones Present Pulses Palpable Color [place] Temperature Warm. Secondary Survey: 08/12 23:59 HEENT: No deficits noted. Gastrointestinal: Abdomen is soft, Bowel sounds present in jd3 all quadrants. Palpation No deficit noted. : No signs and/or symptoms were reported regarding the genitourinary system. Musculoskeletal: Circulation, motion, and sensation intact. Range of motion: limited in left shoulder pt reports pain on palpation to hips. Assessment: 08/13 00:01 General: Appears in no apparent distress. uncomfortable, Behavior is calm, cooperative, jd3 appropriate for age. Pain: Complains of pain in left clavicle, pelvis and neck Quality of pain is described as aching, tender. Neuro: Level of Consciousness is awake, alert, obeys commands, Oriented to person, place, time, situation, Appropriate for age. EENT: No signs and/or symptoms were reported regarding the EENT system. Cardiovascular: Heart tones S1 S2 present Capillary refill < 3 seconds Patient's skin is warm and dry. Respiratory: Airway is patent Respiratory effort is even, unlabored, Respiratory pattern is regular, symmetrical, Breath sounds are clear bilaterally. Denies shortness of breath. GI: Abdomen is flat, non-distended, Bowel sounds present X 4 quads. Abd is soft and non tender X 4 quads. Patient currently denies nausea, vomiting. : No signs and/or symptoms were reported regarding the genitourinary system. Derm: Skin is intact, Skin is dry, Skin is normal, Skin temperature is warm Wound noted right elbow Wound is small skin tear noted to right elbow. not bleeding. Musculoskeletal: Circulation, motion, and sensation intact. Range of motion: limited in left shoulder. 00:43 Reassessment: Patient appears in no apparent distress at this time. Patient and/or jd3 family updated on plan of care and expected duration. Pain level reassessed. Patient is alert, oriented x 3, equal unlabored respirations, skin warm/dry/pink. 01:30 Reassessment: Patient appears in no apparent distress at this time. Patient and/or jd3 family updated on plan of care and expected duration. Pain level reassessed. Patient is alert, oriented x 3, equal unlabored respirations, skin warm/dry/pink. awaiting results and disposition. 02:31 Reassessment: Patient appears in no apparent distress at this time. Patient and/or jd3 family updated on plan of care and expected duration. Pain level reassessed. Patient is alert, oriented x 3, equal unlabored respirations, skin warm/dry/pink. awaiting for room assignment Patient states feeling better. Vital Signs: 08/12 23:57 BP 120 / 70; Pulse 81; Resp 16 S; Temp 97.9(O); Pulse Ox 91% on R/A; Weight 48.99 kg bb (R); Height 5 ft. 5 in. (165.10 cm) (R); Pain 9/10; 08/13 00:42 BP 141 / 82; Pulse 70; Resp 17 S; Pulse Ox 94% on R/A; jd3 01:31 BP 130 / 91; Pulse 97; Resp 18 S; Pulse Ox 94% on R/A; Pain 8/10; jd3 02:32 BP 120 / 79; Pulse 81; Resp 17 S; Pulse Ox 94% on R/A; Pain 5/10; jd3 08/12 23:57 Body Mass Index 17.97 (48.99 kg, 165.10 cm) bb [place] Coma Score: 08/12 23:57 Eye Response: spontaneous(4). Verbal Response: oriented(5). Motor Response: obeys bb commands(6). Total: 15. 08/13 00:43 Eye Response: spontaneous(4). Verbal Response: oriented(5). Motor Response: obeys jd3 commands(6). Total: 15. Trauma Score (Adult): 08/12 23:57 Eye Response: spontaneous(1); Verbal Response: oriented(1); Motor Response: obeys bb commands(2); Systolic BP: > 89 mm Hg(4); Respiratory Rate: 10 to 29 per min(4); [place] Score: 15; Trauma Score: 12 08/13 00:43 Eye Response: spontaneous(1); Verbal Response: oriented(1); Motor Response: obeys jd3 commands(2); Systolic BP: > 89 mm Hg(4); Respiratory Rate: 10 to 29 per min(4); [place] Score: 15; Trauma Score: 12 ED Course: 08/12 23:52 Patient arrived in ED. bb 23:56 Maurice Navarro RN is Primary Nurse. jd3 23:56 Jarret Smith MD is Attending Physician. ma2 23:57 Patient has correct armband on for positive identification. Bed in low position. Call bb light in reach. Side rails up X2. Adult w/ patient. Family accompanied patient. 08/13 00:00 Triage completed. bb 00:05 Arm band placed on Patient placed in an exam room, on a stretcher, on pulse oximetry. bb 00:06 Thermoregulation: warm blanket given to patient. bb 00:18 Patient maintains SpO2 saturation greater than 95% on room air. jd3 00:41 Warm blanket given. Pillow given. PO fluids given. Verbal reassurance given. Head of jd3 bed lowered. Assisted with bedpan. 00:52 CT Traumagram (Head C Spine CAP wo con) In Process Unspecified. EDMS 01:32 Cleaned of incontinence. jd3 01:59 Mary Carmen Aguilar MD is Hospitalizing Provider. ma2 02:33 No provider procedures requiring assistance completed. Patient did not have IV access jd3 during this emergency room visit. Administered Medications: 00:38 Drug: [place] 5 mg-325 mg 1 tabs Route: PO; jd3 01:33 Follow up: Response: No adverse reaction jd3 Intake: 08/12 23:57 PO: 0ml; Total: 0ml. bb Outcome: 08/13 01:59 Decision to Hospitalize by Provider. ma2 02:52 Admitted to Med/surg accompanied by tech, via stretcher, room 409, with chart, Report jd3 called to Michela GAMBLE 02:52 Condition: stable 02:52 Instructed on the need for admit, Demonstrated understanding of instructions. 02:56 Patient's length of stay in the Emergency Department was greater than 2 hours. awaiting jd3 resultsPatient's length of stay extended due to 03:12 Patient left the ED. jd3 Signatures: Dispatcher [employer] EDMS Mariya Meraz RN RN Maurice Culp RN RN jd3 Alzahri, Mohammad, MD MD ma2 Corrections: (The following items were deleted from the chart) 02:35 02:32 BP 120 / 79; Pulse 81bpm; Resp 17bpm; Spontaneous; Pulse Ox 94% RA; jd3 jd3
--- NOTE | 2018-08-13 02:00 | EDPHYS ---
Physician Documentation [facility] Name: Kathy George Age: 82 yrs Sex: Female : 1935 Arrival Date: 08/12/2018 Time: 23:52 Bed 20 Private MD: ED Physician Jarret Smith HPI: 08/13 01:55 This 82 yrs old Female presents to ER via EMS with complaints of mechanical ma2 fall from bed. 01:55 The patient or guardian reports chest pain that is located primarily in the chest ma2 diffusely. Onset: suddenly, 1 hour(s) ago. Associated signs and symptoms: Pertinent negatives: cough, dizziness, lower extremity pain, lightheadedness, syncope. Severity of pain: At its worst the pain was moderate in the emergency department the pain is unchanged. The patient has not experienced similar symptoms in the past. Historical: - Allergies: 00:05 Morphine; bb - Home Meds: 00:05 hydrocodone-acetaminophen 5-325 mg Oral tab 1 tab every 6 hours [Active]; pantoprazole bb 40 mg oral TbEC 1 tab once daily [Active]; bupropion HCl 150 mg Oral Tb24 1 tab twice a day [Active]; Docusate Sodium Oral [Active]; potassium chloride 20 mEq Oral TbER 1 tab once daily [Active]; amlodipine 5 mg tab 1 tab once daily [Active]; quetiapine 25 mg oral tab 1 tab 3 times per day [Active]; Lasix 40 mg Oral tab 1 tab once daily [Active]; hydrochlorothiazide 12.5 mg Oral cap 1 cap once daily [Active]; - Immunization history: Last tetanus immunization: unknown. - Social history:: Smoking status: unknown Patient/guardian denies using alcohol, street drugs, The patient lives with family. - Ebola Screening: : No symptoms or risks identified at this time. - Family history:: not pertinent. ROS: 01:55 Constitutional: Negative for fever, chills, and weight loss. ma2 01:55 Respiratory: Positive for pain\E\, Negative for orthopnea, pleurisy, shortness of breath. 01:55 All other systems are negative. 01:55 MS/Extremity: Negative for injury and deformity, Neuro: Negative for headache, ma2 weakness, numbness, tingling, and seizure. Exam: 01:55 Constitutional: This is a well developed, well nourished patient who is awake, alert, ma2 and in no acute distress. Chest/axilla: Normal chest wall appearance and motion. Nontender with no deformity. No lesions are appreciated. Cardiovascular: Regular rate and rhythm with a normal S1 and S2. No gallops, murmurs, or rubs. Normal PMI, no JVD. No pulse deficits. Respiratory: Lungs have equal breath sounds bilaterally, clear to auscultation and percussion. No rales, rhonchi or wheezes noted. No increased work of breathing, no retractions or nasal flaring. Abdomen/GI: Soft, non-tender, with normal bowel sounds. No distension or tympany. No guarding or rebound. No evidence of tenderness throughout. Neuro: Awake and alert, GCS 15, oriented to person, place, time, and situation. Cranial nerves II-XII grossly intact. Motor strength 5/5 in all extremities. Sensory grossly intact. Cerebellar exam normal. Normal gait. 01:55 Head/Face: Normocephalic, atraumatic. Skin: Warm, dry with normal turgor. Normal ma2 color with no rashes, no lesions, and no evidence of cellulitis. MS/ Extremity: Pulses equal, no cyanosis. Neurovascular intact. Full, normal range of motion. Vital Signs: 08/12 23:57 BP 120 / 70; Pulse 81; Resp 16 S; Temp 97.9(O); Pulse Ox 91% on R/A; Weight 48.99 kg bb (R); Height 5 ft. 5 in. (165.10 cm) (R); Pain 9/10; 08/13 00:42 BP 141 / 82; Pulse 70; Resp 17 S; Pulse Ox 94% on R/A; jd3 01:31 BP 130 / 91; Pulse 97; Resp 18 S; Pulse Ox 94% on R/A; Pain 8/10; jd3 02:32 BP 120 / 79; Pulse 81; Resp 17 S; Pulse Ox 94% on R/A; Pain 5/10; jd3 08/12 23:57 Body Mass Index 17.97 (48.99 kg, 165.10 cm) E[place] Coma Score: 08/12 23:57 Eye Response: spontaneous(4). Verbal Response: oriented(5). Motor Response: obeys bb commands(6). Total: 15. 08/13 00:43 Eye Response: spontaneous(4). Verbal Response: oriented(5). Motor Response: obeys jd3 commands(6). Total: 15. Trauma Score (Adult): 08/12 23:57 Eye Response: spontaneous(1); Verbal Response: oriented(1); Motor Response: obeys bb commands(2); Systolic BP: > 89 mm Hg(4); Respiratory Rate: 10 to 29 per min(4); Epi Score: 15; Trauma Score: 12 08/13 00:43 Eye Response: spontaneous(1); Verbal Response: oriented(1); Motor Response: obeys jd3 commands(2); Systolic BP: > 89 mm Hg(4); Respiratory Rate: 10 to 29 per min(4); [place] Score: 15; Trauma Score: 12 MDM: 08/12 23:56 Patient medically screened. ma2 08/13 01:55 Differential diagnosis: abnormal EKG, anxiety, chest wall pain, gastroesophageal reflux ma2 disease (GERD). Data reviewed: vital signs, nurses notes, lab test result(s), radiologic studies. Counseling: I had a detailed discussion with the patient and/or guardian regarding: the historical points, exam findings, and any diagnostic results supporting the discharge/admit diagnosis, the presence of at least one elevated blood pressure reading (>120/80) during this emergency department visit, the need for outpatient follow up. ED course: has 2 rib fractures will admit to observation.also ct showing possible compression frx of t9 this si likely old as she has no tenderness at that area. patient has known chronic AAA. 08/12 23:57 Order name: CT Traumagram (Head C Spine CAP wo con) ma2 Administered Medications: 00:38 Drug: [place] 5 mg-325 mg 1 tabs Route: PO; jd3 01:33 Follow up: Response: No adverse reaction jd3 Disposition: 08/13/18 01:59 Hospitalization ordered by Mary Carmen Aguilar for Observation. Preliminary diagnosis is Multiple fractures of ribs, left side. - Bed requested for Telemetry/MedSurg (observation). - Status is Observation. jd3 - Condition is Stable. - Problem is new. - Symptoms are unchanged. UTI on Admission? No Signatures: Dispatcher [employer] EDMS Tawanna Bella RN MAVIS mw Mariya Meraz RN RN Maurice Culp RN RN jd3 Jarret Smith MD MD ma2 Corrections: (The following items were deleted from the chart) 02:36 01:59 Hospitalization Ordered by Mary Carmen Aguilar MD for Observation. Preliminary mw diagnosis is Multiple fractures of ribs, left side. Bed requested for Telemetry/MedSurg (observation). Status is Observation. Condition is Stable. Problem is new. Symptoms are unchanged. UTI on Admission? No. ma2 03:12 02:36 08/13/2018 01:59 Hospitalization Ordered by Mary Carmen Aguilar MD for Observation. jd3 Preliminary diagnosis is Multiple fractures of ribs, left side. Bed requested for Telemetry/MedSurg (observation). Status is Observation. Condition is Stable. Problem is new. Symptoms are unchanged. UTI on Admission? No. mw
--- NOTE | 2018-08-13 02:38 | P.HP ---
Certification for Inpatient Patient admitted to: Observation With expected LOS: <2 Midnights Practitioner: I am a practitioner with admitting privileges, knowledge of patient current condition, hospital course, and medical plan of care. Services: Services provided to patient in accordance with Admission requirements found in Title 42 Section 412.3 of the Code of Federal Regulations Patient History Date of Service: 08/13/18 Reason for admission: multiple rib fracture History of Present Illness: Ms George is an 82 years old woman with history of HTN, AAA who is in hospice for that, came to ED after sustained a fall at home landing over her left side of the chest, leading with 2 ribs fracture, 3rd and 4th. She slipped when try to stand up to from the bed. No history of dizziness or palpitation. The patient was in significant pain at arrival, O2 sat was 91%on RA Home medications list reviewed: Yes - Past Medical/Surgical History -: HTN -: AAA Past Surgical History: Reviewed- Non-Contributory - Family History Family History: Reviewed- Non-Contributory - Social History Alcohol use: No CD- Drugs: No Place of Residence: Home Review of Systems 10-point ROS is otherwise unremarkable Physical Examination - Physical Exam General: Alert, In no apparent distress HEENT: Atraumatic, PERRLA, Mucous membr. moist/pink, EOMI, Sclerae nonicteric Neck: Supple, 2+ carotid pulse no bruit, No LAD, Without JVD or thyroid abnormality Respiratory: Clear to auscultation bilaterally, Normal air movement Cardiovascular: Normal S1 S2, No gallops Gastrointestinal: Normal bowel sounds, No tenderness Musculoskeletal: Tenderness (left side of the chest and left flank) Integumentary: No rashes Neurological: Normal speech, Normal strength at 5/5 x4 extr, Normal tone, Normal affect Lymphatics: No axilla or inguinal lymphadenopathy Assessment and Plan - Problems (Diagnosis) (1) Multiple rib fractures Current Visit: Yes Status: Acute Qualifiers: Encounter type: initial encounter Fracture type: closed Laterality: left Qualified Code(s): S22.42XA - Multiple fractures of ribs, left side, initial encounter for closed fracture (2) HTN (hypertension) Current Visit: Yes Status: Acute Qualifiers: Hypertension type: essential hypertension Qualified Code(s): I10 - Essential (primary) hypertension - Plan The patient will be admitted for pain control due to multiple rib fracture. Will order PT and incentive spirometry. She is in hospice for AAA, receiving visits 3 times a week. Her daughter will be her caregiver at home. Once pain well controlled, may be discharge home. - Advance Directives Does patient have a Living Will: No Does patient have a Durable POA for Healthcare: No - Code Status/Comfort Care Code Status Assessed: Yes Code Status: Do Not Resuscitate
[2018-08-13] MEDS ORDERED: NA CHLORIDE 0.9% 1,000 ML IV SCH (03:29)
[2018-08-13] MEDS ORDERED: ONDANSETRON 4 MG/2 ML VIAL IV PRN (03:29)
[2018-08-13] MEDS: HYDROCODONE/APAP 5/325 MG TAB PO PRN ×3 (04:32→14:00)
[2018-08-13 04:51] LABS: Urine Appearance CLEAR; Urine Bilirubin NEGATIVE (NEG); Urine Blood NEGATIVE (NEG); Urine Color YELLOW; Urine Glucose NEGATIVE (NEG); Urine Protein NEGATIVE (NEG); Urine Urobilinogen 0.2 mg/dL (0.2-1.0)
[2018-08-13 05:10] LABS: Urine Microscopic Reflex NO UMIC
[2018-08-13] MEDS ORDERED: DOCUSATE NA 100 MG CAP PO SCH (10:04)
--- NOTE | 2018-08-13 11:06 | P.SSS ---
Patient History Date of Service: 08/13/18 Reason for admission: multiple rib fracture History of Present Illness: sEE hpi Allergies morphine Adverse Reaction (Severe, Verified 08/13/18 03:29) Sleeping Home Medications: Amlodipine Besylate 1 tab PO DAILY 08/13/18 Bupropion HCl [Bupropion HCl Sr] 1 tab PO BID 08/13/18 Furosemide 1 tab PO DAILY 08/13/18 Hydrocodone Bit/Acetaminophen [Hydrocodon-Acetaminophen 5-325] 1 tab PO Q4H PRN 08/13/18 Pantoprazole [Protonix Tab*] 1 tab PO DAILY 08/13/18 Potassium Chloride 1 tab PO DAILY 08/13/18 Quetiapine [Seroquel*] 1 tab PO TID 08/13/18 Sennosides/Docusate Sodium [Docusate Sodium-Senna Tablet] 1 - 2 tab PO BID 08/13 hydroCHLOROthiazide [Hydrochlorothiazide] 1 tab PO DAILY 08/13/18 - Past Medical/Surgical History Has patient received pneumonia vaccine in the past: Yes Diabetic: No -: HTN -: AAA - Family History Family History: Reviewed- Non-Contributory - Social History Smoking Status: Never smoker Alcohol use: No CD- Drugs: No Caffeine use: Yes Place of Residence: Home Review of Systems 10-point ROS is otherwise unremarkable Physical Examination - Vital Signs Temperature: 98.2 F Blood Pressure: 104/70 Pulse: 80 Respirations: 17 Pulse Ox (%): 96 - Physical Exam General: Alert, In no apparent distress, Cachectic, Demented Cardiovascular: Regular rate/rhythm, Normal S1 S2 Gastrointestinal: Normal bowel sounds, No tenderness Musculoskeletal: No tenderness Integumentary: No rashes Lymphatics: No axilla or inguinal lymphadenopathy - Diagnosis (Problem(s)) (1) Hospice care Current Visit: Yes Status: Chronic (2) Thoracic compression fracture Current Visit: Yes Status: Acute Qualifiers: Encounter type: initial encounter Thoracic vertebra fracture level: T10 Qualified Code(s): S22.070A - Wedge compression fracture of T9-T10 vertebra, initial encounter for closed fracture (3) Multiple rib fractures Current Visit: Yes Status: Acute Qualifiers: Encounter type: initial encounter Fracture type: closed Laterality: left Qualified Code(s): S22.42XA - Multiple fractures of ribs, left side, initial encounter for closed fracture (4) HTN (hypertension) Current Visit: Yes Status: Chronic Qualifiers: Hypertension type: essential hypertension Qualified Code(s): I10 - Essential (primary) hypertension Treatment Summary: Transferred back to hospice care once pain was controlled and patient worked with physical therapy - Disposition Disposition: HOSPICE-HOME Condition: FAIR Diet: Regular Activity: Ad janine
--- NOTE | 2018-08-15 13:00 | RAD REPORT ---
EXAM DESCRIPTION: CT - Head C Spine Cap Wo Con - 08/13/2018 1:23 am ADDENDUM #1 THIS REPORT CONTAINS FINDINGS THAT MAY BE CRITICAL TO PATIENT CARE: The findings were verbally discussed via telephone conference with Dr. Jarret Smith by Dr. Cuate Gonzalez on 08/13/2018 1:20 AM CDT .The results were acknowledged and understood. A typographical error is noted within the body of report. VASCULATURE: Extensive atherosclerosis of the vasculature is present. The ascending aorta is dilated measuring 4.8 cm. Aneurysm of the infrare nal abdominal aorta measuring 7.4 x 6.6 cm is present. There is heterogeneous appearance of the abdom inal aorta within the aortic aneurysm with peripheral crescentic hyperdensity. Electronically signed by: Hilda Gonzalez MD 08/13/2018 1:22 AM CDT End of Addendum EXAM DESCRIPTION: CT Head Without Intravenous Contrast CT Cervical Spine Without Intravenous Contrast CLINICAL HISTORY: The patient is 82 years old and is Female; DEFORMITY TECHNIQUE: Axial computed tomography images of the head/brain and cervical spine without intravenous contrast. Sagittal and coronal reformatted images were created and reviewed. This CT exam was pe rformed using one or more of the following dose reduction techniques: automated exposure control, a djustment of the mA and/or kV according to patient size, and/or use of iterative reconstruction techn ique. COMPARISON: No relevant prior studies available. FINDINGS: BRAIN: There is diffuse cerebral atrophy present, consistent with this patient's age. There is patchy hypoattenuation of the deep white matter which is non-specific, but most likely owing to chronic small vessel ischemic change in a patient of this age group. No intracranial hemorrhage , mass effect, or midline shift is seen. VENTRICLES: There is diffuse prominence of the ventricles, which is likely related to central at rophy. SKULL: No acute fracture. SINUSES: Unremarkable as visualized. No acute sinusitis. MASTOID AIR CELLS: Unremarkable as visualized. No mastoid effusion. VERTEBRAE: The vertebral body heights and alignment are maintained. No acute fracture. DISCS/SPINAL CANAL/NEURAL FORAMINA: There is multi-level intervertebral disc height loss. There are disc-osteophyte complexes at several levels, with associated mild/moderate spinal canal narrowing . There is also facet hypertrophy and uncovertebral joint osteophytosis, with associated multilevel n eural foraminal narrowing. SOFT TISSUES: The soft tissues are normal. LUNG APICES: The lung apices are clear. IMPRESSION: 1. Age-related atrophy and chronic white matter ischemic changes, with no evidence of an acute intracranial abnormality. 2. Moderate spondylosis of the cervical spine without acute findings. EXAM: CT Chest Without Intravenous Contrast CT Abdomen and Pelvis Without Intravenous Contrast CLINICAL HISTORY: The patient is 82 years old and is Female; DEFORMITY TECHNIQUE: Axial computed tomography images of the chest, abdomen and pelvis without intravenous con trast. Sagittal and coronal reformatted images were created and reviewed. This CT exam was perfor med using one or more of the following dose reduction techniques: automated exposure control, adjus tment of the mA and/or kV according to patient size, and/or use of iterative reconstruction technique . COMPARISON: No relevant prior studies available. FINDINGS: CHEST: LUNGS: Calcified granuloma within the right lower lobe is present. The tracheobronchial tree is widely patent. PLEURAL SPACE: Unremarkable. No significant effusion. No pneumothorax. HEART: No cardiomegaly. No pericardial effusion. ABDOMEN: LIVER: Several hepatic granuloma are present. GALLBLADDER AND BILE DUCTS: No calcified stones. No ductal dilation. PANCREAS: The pancreas is atrophic. No ductal dilation. SPLEEN: Several splenic granuloma are present. ADRENALS: Hyperplasia of the left adrenal gland is noted. KIDNEYS AND URETERS: No obstructing stones. No hydronephrosis. STOMACH AND BOWEL: The stomach is minimally fluid filled. The small bowel is relatively normal i n caliber. Evaluation is limited secondary to lack of oral contrast and mesenteric fat. Extensive sto ol is noted throughout the colon. There is no bowel obstruction. PELVIS: APPENDIX: No findings to suggest acute appendicitis. BLADDER: The bladder is well distended. No stones. REPRODUCTIVE: Unremarkable as visualized. CHEST, ABDOMEN and PELVIS: INTRAPERITONEAL SPACE: Unremarkable. No significant fluid collection. No free air. BONES/JOINTS: Fractures of the left anterior third and fourth ribs are present. Several healed l eft-sided rib fractures are present. Multilevel degenerative changes spine is present with several ch ronic compression deformity and vacuum disc phenomenon throughout. Anterolisthesis of L5 on S1 is not ed with associated bilateral neural foraminal narrowing. Facet arthropathy is present throughout. Fin dings suggestive of an acute on chronic fracture through the superior endplate of T10 is present. Sug gestion of acute fracture involving the inferior endplate of T9 is also present. There is no evidence of retropulsion. SOFT TISSUES: The soft tissues are normal. VASCULATURE: Extensive atherosclerosis of the vasculature is present. The ascending aorta is dil ated measuring 4.8 cm. Aneurysm of the infrarenal abdominal aorta measuring 7.4 x 6.6 cm is present. There is heterogeneous appearance of the abdomen within the aortic aneurysm with peripheral crescenti c hyperdensity. The main pulmonary arteries are dilated. LYMPH NODES: Calcified right hilar and mediastinal lymph nodes are present. IMPRESSION: 1. No evidence of solid organ injury on this noncontrasted CT of the chest, abdomen, a nd pelvis. 2. Acute fractures of the left anterior third and fourth ribs. 3. Findings suggestive of acute fractures involving the superior endplate of T10 and inferior endpl ate of T9. 4. Aneurysm of the infrarenal abdominal aorta with findings suspicious for impending rupture. Recom mend referral to a vascular specialist. Reference: J Am Yohannes Radiol 2013;10:789-794. Electronically signed by: Hilda Gonzalez MD 08/13/2018 1:17 AM CDT Due to temporary technical issues with the PACS/Fluency reporting system, reports are being signed by the in house radiologist as a courtesy to ensure prompt reporting. The interpreting radiologist is f ully responsible for the content of the report.
== END 2018-08-13 14:44 | disposition hospice, home (50) ==
LOC: ER 23:48 → ERHOLD 08-13 02:24 → 4TH 08-13 02:57
PROVIDERS: ADMIT Internal Medicine; ATTEND Internal Medicine
DX: S22.42XA Multiple fractures of ribs, left side, initial encounter for closed fracture (principal); W01.0XXA Fall on same level from slipping, tripping and stumbling without subsequent striking against object, initial encounter; Y92.003 Bedroom of unspecified non-institutional (private) residence as the place of occurrence of the external cause; I10 Essential (primary) hypertension; I71.4 Abdominal aortic aneurysm, without rupture; S22.070A Wedge compression fracture of T9-T10 vertebra, initial encounter for closed fracture
CPT/HCPCS: 81003; 70450; 71250; 72125; 97760; 97116; 97163; 97530; 99285; J7030; G0378 ×2